=== PATIENT | male | born 1980 | race Caucasian/White ===

== ENCOUNTER 2016-12-03 13:11 | Day surgery (SDC) | payer OTHER ==
[~2016-12-03] VITALS: Ht 182.9 cm; Wt 122.5 kg
[2016-12-03] VITALS (18 sets, daily range): BP systolic 119–156; BP diastolic 60–99; PULSE 80–91; RESP 10–19; O2SAT 95–100
[~2016-12-03 13:11] MED LIST: ALBU18HF INH; CeFAZolin Inj 2 GM in IV Premix 1 EACH IV ONE; DIAZ5TAB PO; DULO60CA61 PO; FLUT16SP NOSTRIL; IBUP800T28 PO; KEN1C; METH10SO PO; METO50TA3 PO; OMEP20TA86 PO; POTA20TA16 PO; TEST200V20 IM; TRAZ-118 PO; ZLP5T PO
[2016-12-03] MEDS ORDERED: MetoCLOpramide 5 mg/mL 2 mL Inj ONE (13:12)
[2016-12-03] MEDS ORDERED: fentaNYL-PF 50 mCg/mL 2 mL Inj ONE (13:12)
[2016-12-03] MEDS ORDERED: Ondansetron 2 mg/mL 2 mL Inj ONE (13:12)
[2016-12-03] MEDS ORDERED: HYDROmorphone 2 mg/mL Inj ONE (13:12)
[2016-12-03] MEDS ORDERED: Dexamethasone 4 mg/mL Inj ONE (13:12)
[2016-12-03] MEDS ORDERED: Rocuronium 10 mg/mL 5 mL Inj ONE (13:12)
[2016-12-03] MEDS: Lactated Ringer's 1,000 ML IV SCH ×2 (14:35→17:41)
[2016-12-03] MEDS ORDERED: CeFAZolin 2 Gm/50 mL D5W Duplex Bag IV ONE (14:45)
[2016-12-03] MEDS ORDERED: Lactated Ringer's 1,000 ML IV SCH (17:29)
[2016-12-03] MEDS ORDERED: Lactated Ringer's 500 ML IV PRN (17:29)
[2016-12-03] MEDS ORDERED: Atropine 0.4 mg/mL Inj IVPUSH PRN (17:30)
[2016-12-03] MEDS ORDERED: Phenylephrine 10,000 mCg/mL Inj IVPUSH PRN (17:30)
[2016-12-03] MEDS ORDERED: Labetalol 5 mg/mL 4 mL Inj IV PRN (17:30)
[2016-12-03] MEDS ORDERED: MetoCLOpramide 5 mg/mL 2 mL Inj IVPUSH PRN (17:30)
[2016-12-03] MEDS ORDERED: EPHEDrine Sulfate 50 mg/mL Inj IVPUSH PRN (17:30)
[2016-12-03] MEDS ORDERED: Ondansetron 2 mg/mL 2 mL Inj IVPUSH PRN (17:30)
[2016-12-03] MEDS ORDERED: hydrALAZINE 20 mg/mL Inj IVPUSH PRN (17:30)
--- NOTE | 2016-12-03 17:41 | PCM.HPANE ---
Patient Data Surgeon Admitting Provider: Attending Provider:Kapil Johnson DPM Primary Care Physician:Cayetano Phillip MD Other Provider:[facility] Reason for Visit Closed Displaced Trimaleolar Fracture Of Lower Rig Ht/WT & BMI Height (Feet): 6 Height (Inches): 0 Weight (Kilograms): 122.5 Body Mass Index 36.00 Allergies Coded Allergies: sulfamethoxazole (Unverified Allergy, Intermediate, Hives, 12/03/16) Pt reports it occured immidiately after dose given by urgent care trimethoprim (Unverified Allergy, Intermediate, Hives, 12/03/16) Pt reports it occured immidiately after dose given by urgent care celecoxib (Verified Adverse Reaction, Intermediate, 12/03/16) DISGESTIVE ISSUES ibuprofen (Verified Adverse Reaction, Intermediate, 12/03/16) GASTRIC ISSUES Past Anesthesia History Anesthesia History: Denies:: Anesthesia Reactions, Fam Anesthesia Reaction Diabetes History Hx Diabetes?: No MRSA MRSA: No Medications Home Meds Incl Beta Lucrecia: Yes Date Beta Lucrecia Taken: Dec 03, 2016 Time Beta Lucrecia Taken: 1200 Active Scripts Ibuprofen 800 Mg [id number] Mg PO TID PRN For Pain #15 TABLET Prov:Virgie Hampton DO 01/08/16 Diazepam (Valium)5 Mg Aqmqti08 Mg PO QID PRN For Anxiety or Agitation #40 TABLET Prov:Virgie Hampton DO 01/08/16 Reported Medications Metoprolol Tartrate 50 Mg Gvxgqg20 Mg PO BID #60 01/05/16 Fluticasone Propionate (Fluticasone Propionate Nasal)16 Gm [place].susp2 [place] NOSTRIL DAILY PRN For Congestion 10/26/15 Potassium Chloride 20 Meq Tab.er.prt20 Meq PO DAILY TAKE WITH FOOD 10/26/15 Albuterol Sulfate (Ventolin HFA Inhaler)200 Puff/18 Gm Inhaler1 Puff INH Q4 PRN For Wheezing #1 INHALER Ref 0 06/19/15 Omeprazole 20 Mg Tablet.dr20 Mg PO DAILY 06/19/15 Duloxetine 60 Mg Capsule.dr60 Mg PO DAILY 03/08/15 Testosterone Cypionate 200 Mg/1 Ml Ajsg138 Mg IM X61gpyg next due 01/08/16 03/08/15 Methadone 10 Mg/5 Ml Zfbrtlas67 Mg PO AM 03/08/15 Trazodone 100 Mg Rpfjum572 Mg PO HS 03/08/15 Zolpidem (Ambien)5 Mg Tab5 Mg PO HS PRN For Insomnia 03/08/15 Discontinued Reported Medications Triamcinolone Acet (Triamcinolone Acetonide Cream)1 Applic/0.25 Gm Cr1 Appful prn #30 01/05/16 History History of ENT Problems?: Yes HEENT History: Positive for:: Sinus Problem (hx of chronic sinusitis) Denies:: Cataracts Dysphagia Hx of Heart Problems?: Yes Cardiovascular History: Positive for:: Edema Hypertension Denies:: Cardiac Surgery Chest Pain Congestive Heart Failure Heart Murmur Irregular Heartbeat Pacemaker Thrombophlebitis Hx of Respiratory Problem?: Yes Respiratory History: Positive for:: Asthma (remote h/o) Pneumonia Denies:: COPD Chest Surgery Dyspnea Emphysema Hemoptysis Oxygen Administration Tuberculosis Use of C-PAP Machine (PORFIRIO+- does not tolerate CPAP) Hx Neurologic Problems?: Yes Neurological History: Positive for:: Seizures (EtOH withdrawal) Denies:: Alzheimer's Disease CVA Dementia Dizziness Headaches Parkinson's Disease Hx of GI Problems?: Yes Gastrointestinal History: Positive for:: Gastroesphageal Reflux (on PPI) Denies:: Diverticulitis Gastrointestinal Bleeding Heartburn Hepatitis Hiatal Hernia Rectal Bleeding Hx of Problems?: No Genitourinary History: Denies:: Kidney Stones Urinary Tract Infection Male Hx: Denies:: Prostate Problems Scrotal Mass Testicular Surgery Skin History: Positive for:: History Skin Disorders? (wound center- right mid thigh wound- treated 02/05/16) Denies:: Pressure Ulcers Hx Musculoskeletal Problems?: Yes Musculoskeletal History: Positive for:: Back Injury Musculoskeletal Trauma (right ankle current admission problem) Denies:: Joint Replacement Hx of Psycho/Social Problems?: Yes Psycho Social History: Positive for:: Hx Depression Denies:: Anxiety Bipolar Disorder Suicide Attempt Hx Surgeries?: Yes (I&D thigh, Rt ankle ex fix, removal hardware right ankle) Hx Any Other Health Problems?: Yes Other History: Positive for:: Hospitalization (lower leg edema this year/ abscess i&d) Denies:: Cancer Endocrine Disease Thyroid Disease History Blood Transfusions: Denies:: Blood Transfuse Reaction Blood Transfusions Hx Diabetes: No Hx Alcohol Use: Yes (currently drinks about 2 weekends a month; denies daily use)Hx Substance Use: Yes (Heroin- currently attending methadone program) Smoking Status: Current Every Day Smoker Have You Smoked inLast 12 mo: Yes Stop/Bang S-Snoring: Do You Snore Loudly: Yes T-Tired: feel tired, fatigued: Yes O-Obsered: Observed not breath: Yes P-Blood Pressure: treated: Yes B- Body Mass Index > 35 kg/m2: Yes A- Age over 50: No N- Neck Large Circumference: No G- Gender Male: Yes PORFIRIO Total Score: 6 Risk Assessment Category Category 1A: Patient has history of documented sleep apnea, and HAS NOT received any narcotic, sedative or anesthesia administration during this stay. Category 1B: Patient has history of documented sleep apnea, and HAS received any narcotic , sedative or anesthesia administration during this stay Category 2: Patient has SUSPECTED Obstructive Sleep Apnea, and HAS received any narcotic , sedative or anesthesia administration during this stay. Category 3: Patient has SUSPECTED Obstructive Sleep Apnea and HAS NOT received narcotic, sedative or anesthesia administration during this stay. Category 4: Outpatient in Procedural Areas with known sleep apnea or who screen positive for High Risk via the STOP/BANG questionnaire. Exam Exam Vital Signs Vital Signs Date Time Temp Pulse Resp B/P Pulse Ox O2 Delivery O2 Flow Rate FiO2 12/03/16 14:15 37.0 84 18 119/60 95 Room Air General Appearance: Alert, Oriented X3, Cooperative, No Acute Distress HEENT/AIRWAY: MP 2, Neck Movement (FROM, large neck circumference), Mouth Opening (3 FBMO) Lungs: Normal Air Movement Heart: Regular Rate/Rhythm Meds/Labs/Diagnostics Admission Meds Current Medications Lactated Ringer's (Lr) 1,000 ml @ 120 mls/hr Q8H20M IV Last administered on t 14:35; Start 12/03/16 at 05:00; Stop 12/03/16 at 13:19; Status DC Labs Test 12/03/16 13:32 Alcohol, Quantitative 42mg/dL (0-10) Plan Impression Patient chart reviewed, patient interviewed and anesthestic plan with risks, benefits, and alternatives discussed, and informed consent obtained. NPO Status: 2100 12/02 ASA Physical Status: ASA3 Severe Disease (Heroin abuse, ETOH abuse, morbidly obese) Anesthetic Support Modalities: [place] Scope Anesthetic Plan: GA, Regional Block (Right popliteal block risks discussed including bleeding, infection, nerve damage, . AQA. Consent signed) Bene/Risks/Altern/Consents: Yes HP Complete Prior to Induction: Yes Valerio Pendleton MD Dec 03, 2016 14:56
[2016-12-03] MEDS ORDERED: Bupivacaine-MPF 0.5% W/EPI 30 mL Inj INFILTRATE ONE (17:42)
[2016-12-03] MEDS ORDERED: oxyCODONE-Acetamin 5-325 mg Tablet PO PRN (20:40)
--- NOTE | 2016-12-03 20:45 | PCM.PODPO ---
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 Grafts, Implants: Implants-See Implant Record Complications There were no periprocedural complications identified. Condition Stable Anesthetic Administered: GA Catheters: None Output, Estimated Blood Loss: 100 Blood Admin during surgery: No Surgical Cast or Splint: Well-padded Short Leg Splint Surgical Specimen Removed: No Specimen sent to Pathology: No Post Operative Plan Nonweightbearing right lower extremity Ice and elevate right lower extremity Pain medication as needed for severe pain only Follow-up in office in 1 week Keep dressing clean dry and intact Discharged to home when stable Contact us with any questions or concerns regarding care Kapil Johnson DPM Dec 03, 2016 20:45
[2016-12-03] MEDS: fentaNYL-PF 50 mCg/mL 2 mL Inj IVPUSH PRN ×2 (21:02→21:20)
[2016-12-03] MEDS: HYDROmorphone 1 mg/mL Inj IVPUSH PRN ×2 (21:30→21:45)
--- NOTE | 2016-12-03 21:55 | NUR ---
Postop Recover and DC Pt comes via [facility] after Rt ankle ORIF. A&Ox4, Denies SOB, CP, Nausea. On 3L NC and will plan to wean off of oxygen. IV Left FA. Rt ankle Dsg Splint and LUIS warp just distal to knee down to toes. Sensation in tact in toes, warm and wiggles toes. Elevated and ICE packs in place. Friend at bedside. VS stable. Pt rates pain at this time in ankle 6-7/10. States that 4-5/10 is tolerable. Plan to recover and discharge once SPO2 is >92% on RA and 90minutes after last oral medications. Pt anxious to discharge.
--- NOTE | 2016-12-03 23:07 | NUR ---
Discharge Pt rates pain in rt ankle 04/30 but requesting to go home so that he can fill his Rxs. Friend at bedside and for transportation. DSG C/D/I. Voiding spontaneously. Able to ambulate well with steady gait Nonweight bearing with scooter. VS STable RA 97% SPO2. Denies CP, SOB, Nausea. IV Lt FA removed and DC'd. All discharge instructions reviewed with pt and friend at bedside. Written Rx for pain medications and DC instructions in hand. Pt states that he understand the instructions, understands to use pain medication as needed when pain is intolerable only. Pt states that he feels safe discharging at this time and is anxious to get home. Pt left hospital via Scooter with steady gait and was transported via friend. Discontinuing care at this time. Addendum: 12/03/16 at 2313 by ROLANDO ZABALA RN Pt also understands t6o elevate and ice ankle. Toes warm and pink. MANHOLE STRIPPER <3sec. Sensation in tact.
--- NOTE | 2016-12-03 23:13 | PCM.ANEP2 ---
Post Anesthesia Evaluation ASA/CMS Post Anesthesia VS in Patient's Normal Range?: Yes Resp Stable; Airway Patent?: Yes CV Function & Hydration Stable: Yes Mental Status Recovered?: Yes Pain control Satisfactory?: Yes N/V Control Satisfactory?: Yes Lloyd Lorenzana MD Dec 03, 2016 23:13
--- NOTE | 2016-12-03 23:13 | PCM.ANEP1 ---
Post Anesthesia Phase 1 PACU Phase 1 Assessment Date of Service: Dec 03, 2016 Vital Signs Vital Signs Date Time Temp Pulse Resp B/P Pulse Ox O2 Delivery O2 Flow Rate FiO2 12/03/16 22:14 36.5 87 16 133/76 96 Nasal Cannula 3.00 12/03/16 22:00 Supplement Oxygen 12/03/16 21:50 88 14 131/82 97 Nasal Cannula 2 12/03/16 21:45 88 14 120/81 97 Nasal Cannula 2 12/03/16 21:40 90 13 120/92 99 Nasal Cannula 2 12/03/16 21:35 36.3 86 14 133/72 97 Nasal Cannula 2 12/03/16 21:30 88 12 136/74 97 Nasal Cannula 2 12/03/16 21:30 84 10 136/84 97 Nasal Cannula 2 12/03/16 21:25 84 19 119/88 97 Nasal Cannula 2 12/03/16 21:20 84 13 119/99 97 Nasal Cannula 2 12/03/16 21:15 83 12 138/81 97 Nasal Cannula 2 12/03/16 21:10 91 14 133/88 95 Room Air 12/03/16 21:05 88 11 140/76 97 Room Air 12/03/16 21:00 88 12 156/84 97 Room Air 12/03/16 20:55 89 12 142/85 100 Simple Mask 8 12/03/16 20:50 90 13 140/89 98 Simple Mask 8 12/03/16 20:45 81 12 135/88 98 Simple Mask 8 12/03/16 20:40 80 13 136/85 98 Simple Mask 8 12/03/16 20:35 36.4 80 13 139/83 98 Simple Mask 8 Anesthetic Administered: GA Level of Alertness: Awake, talking SOTO's with Equal Strength: Yes Pain: Yes Nausea or Vomiting: No Airway Device: Oralpharangeal Airway Lungs: Normal Air Movement Lloyd Lorenzana MD Dec 03, 2016 23:13
== END 2016-12-04 01:29 | disposition home or self-care (01) ==
LOC: SAS 13:11 → OSC 22:04 → SAS 12-04 01:29
PROVIDERS: ATTEND Podiatrist Foot & Ankle Surgery
DX: S82.401K Unspecified fracture of shaft of right fibula, subsequent encounter for closed fracture with nonunion (principal); S93.04XS Dislocation of right ankle joint, sequela; I10 Essential (primary) hypertension; F10.180 Alcohol abuse with alcohol-induced anxiety disorder; E66.01 Morbid (severe) obesity due to excess calories; J45.909 Unspecified asthma, uncomplicated; F32.9 Major depressive disorder, single episode, unspecified; F17.210 Nicotine dependence, cigarettes, uncomplicated; Z79.891 Long term (current) use of opiate analgesic; Z68.39 Body mass index [BMI] 39.0-39.9, adult
CPT/HCPCS: 27726; 36415; 73600; 76001; 76942; C1713; G0480; J0690; J1100; J1170; J2250; J2405; J2765; J7120

== ENCOUNTER 2017-03-13 12:17 | Inpatient (IN) | payer OTHER ==
[2017-03-13] VITALS (8 sets, daily range): BP systolic 141–195; BP diastolic 83–102; PULSE 82–97; RESP 18–20; O2SAT 93–98
[~2017-03-13] VITALS: Ht 180.3 cm; Wt 126.6 kg
[~2017-03-13 12:17] MED LIST changes: -CeFAZolin Inj 2 GM in IV Premix 1 EACH IV ONE; -KEN1C
[2017-03-13] MEDS ORDERED: Thiamine Inj 100 MG, Folic Acid Inj 1 MG, Magnesium Sulfate 50% Inj 2 GM, Multivitamins... IV ONE ×10 (12:40→17:55)
[2017-03-13] MEDS ORDERED: Ondansetron 2 mg/mL 2 mL Inj IVPUSH PRN ×2 (12:40→14:10)
[2017-03-13] MEDS ORDERED: 0.9% Sodium Chloride 1,000 ML IV ONE (12:40)
--- NOTE | 2017-03-13 12:42 | ED.REPORT ---
HPI-Abd Pain M Under 40 Date of Service Mar 13, 2017 ED Provider: Hernando Diaz DO A 36 year old male with a history of hypertension, alcohol seizures, delirium tremens, polysubstance abuse, dyspepsia and GERD presents to the ED with upper abdominal pain that began this morning. Associated symptoms include nausea, vomiting, diaphoresis and tremors. He reports similar symptoms during previous periods of EtOH withdrawal. Patient's abdominal pain radiates to his back. He is currently seeking detox at this time and is requesting resources. Patient's last drank was last night. He had one previous admission in 2014 (5 days) for alcohol withdrawal. Patient currently takes methadone for prior heroin abuse. Nursing Notes Stated Complaint: ABDOMINAL PAIN Chief Complaint: Male Abdominal Pain Nursing Notes Reviewed: Yes Allergies: Coded Allergies: sulfamethoxazole (Unverified Allergy, Intermediate, Hives, 12/03/16) Pt reports it occured immidiately after dose given by urgent care trimethoprim (Unverified Allergy, Intermediate, Hives, 12/03/16) Pt reports it occured immidiately after dose given by urgent care celecoxib (Verified Adverse Reaction, Intermediate, 12/03/16) DISGESTIVE ISSUES ibuprofen (Verified Adverse Reaction, Intermediate, 12/03/16) GASTRIC ISSUES Scheduled Duloxetine (Duloxetine) 60 Mg Capsule.dr 60 MG PO DAILY Methadone (Methadone) 10 Mg/5 Ml Solution 94 MG PO AM Metoprolol Tartrate (Metoprolol Tartrate) 50 Mg Tablet 50 MG PO BID Omeprazole (Omeprazole) 20 Mg Tablet.dr 20 MG PO DAILY Potassium Chloride (Potassium Chloride) 20 Meq Tab.er.prt 20 MEQ PO DAILY TAKE WITH FOOD Testosterone Cypionate (Testosterone Cypionate) 200 Mg/1 Ml Vial 100 MG IM I23ippe next due 01/08/16 Trazodone (Trazodone) 100 Mg Tablet 300 MG PO HS Scheduled PRN Albuterol Sulfate (Ventolin HFA Inhaler) 200 Puff/18 Gm Inhaler 1 PUFF INH Q4 PRN PRN For Wheezing Diazepam (Valium) 5 Mg Tablet 10 MG PO QID PRN PRN For Anxiety or Agitation Fluticasone Propionate (Fluticasone Propionate Nasal) 16 Gm [place].susp 2 [place] NOSTRIL DAILY PRN PRN For Congestion Ibuprofen (Ibuprofen) 800 Mg Tablet 800 MG PO TID PRN PRN For Pain Zolpidem (Ambien) 5 Mg Tab 5 MG PO HS PRN PRN For Insomnia General Time Seen by MD: 12:26 Chief Complaint Abdominal pain Hx Obtained From: Patient Arrived By: Walk-in Sudden in Onset?: No Onset Occurred: 5 - 8 hours ago Symptom Duration: Since onset Progression since Onset: Unchanged Location: : Diffuse Quality: Painful Radiation: : Back Severity: Current: Moderate Severity: Maximum: Moderate Associated with: Reports: Chills, Nausea, Vomiting Pertinent Negative: Pt denies other symptoms Recent Healthcare: No recent doctor visit, No recent hospitalization Past Medical History Past Medical History Notes: Admitted 03/17- for ETOH intox/withdrawal Note medications and often reconciled, but a discharge note from February 2015 indicate patient on maintenance methadone at 140 mg daily Past Medical History Seizures due to alcohol withdrawal Coy moreno H/O polysubstance abuse History of chronic lower extremity edema History dyspepsia Reports: Asthma, GERD, Hypertension Past Surgical History Bladder surgery at age 4 right ankle fracture followed by [facility] Family History AAA Smoking History Current Every Day Smoker Social History Lives with mother and friendShannon. Cares for ill mother. 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 Neurologic: Reports: Shaking, Denies: Seizure Physical Exam Initial Vital Signs Vital Signs (First) Date Time Temp Pulse Resp B/P Pulse Ox O2 Delivery O2 Flow Rate FiO2 03/13/17 12:20 36.2 97 20 151/93 98 Room Air Initial VS: Reviewed Head / Eyes: Atraumatic, Normocephalic, PERRL Extremities: Vascular intact, Neuro intact, No swelling, No tenderness Neurologic: Alert, Oriented, Nonfocal Psychiatric: Mood/affect normal, Behavior normal, Normal thought content General/Constitutional: Awake, Alert, No acute distress Respiratory / Chest: Atraumatic, Breath sounds NL, Breath sounds = bilat, No respiratory distress Cardiovascular: Heart rate NL, Regular rhythm, Heart sounds NL Abdomen: Atraumatic, Soft Tenderness/Guarding/Rebound: Positive: Tender LLQ..., Tender periumbilical Back: Atraumatic, Inspection NL Neurologic: Oriented X3, Speech NL, No sensory deficits, CN II - XII intact Movement Abnormality: Positive: Tremor Skin: Atraumatic, Color NL Color / Condition: Positive: Diaphoresis present Interpretation & Diagnostics Lab Results Interpretation Result Diagram: 03/13/17 1300 03/13/17 1300 Test 03/13/17 13:00 03/13/17 13:53 White Blood Count 14.8th/mm3 (3.8-10.1) Red Blood Count 4.60mil/mm3 (4.40-5.80) Hemoglobin 15.0g/dL (13.8-17.2) Hematocrit 45.9% (41.0-50.0) Mean Corpuscular Volume 99.8fL (81-100) Mean Corpuscular Hemoglobin 32.6pg (27.0-35.0) Mean Corpuscular Hemoglobin Concent 32.7% (32.0-37.0) Red Cell Distribution Width 15.4% (12.3-15.4) Platelet Count 196bil/L (150-400) Neutrophils (%) (Auto) 86.6% (40-74) Lymphocytes (%) (Auto) 5.2% (14-46) Monocytes (%) (Auto) 7.7% (4-12) Eosinophils (%) (Auto) 0.1% (0-5) Basophils (%) (Auto) 0.1% (0-3) Sodium Level 136mEq/L (134-144) Potassium Level 3.4mEq/L (3.5-5.2) Chloride Level 96mEq/L (97-108) Carbon Dioxide Level 27mmol/L (18-29) Blood Urea Nitrogen 2mg/dL (6-20) Creatinine 0.51mg/dL (0.76-1.27) Estimat Glomerular Filtration Rate 194mL/min (>59) Glucose Level 112mg/dL (60-99) Calcium Level 9.0mg/dL (8.5-10.1) Magnesium Level 1.6mg/dL (1.6-2.6) Total Bilirubin 1.1mg/dL (0.0-1.2) Aspartate Amino Transf (AST/SGOT) 60U/L (0-50) Alanine Aminotransferase (ALT/SGPT) 43U/L (0-44) Alkaline Phosphatase 152U/L (25-150) Total Protein 7.0g/dL (6.4-8.4) Albumin 3.5g/dL (3.4-5.0) Lipase 296U/L (13-60) Hold Aguilar Top Tube Received (Received) Alcohols < 10mg/dL (0-10) Lab Results Interpretation: URINE DIP SP [place] 1.000 pH 8 ECG Interpretation ECG Interpretation: Sinus Rhythm QTC 505 Rate 94 Time: 12:58 Interpreted by: ED physician Normal ECG Interpretation: No change from prior ECGs Re-Eval/Medical Decision Med Decision/Clinical Course Concern for impending severe alcohol withdrawal and probable impending delirium tremens as well as pancreatitis. Patient will be admitted. Re-Evaluation/Progress #1: Time of Eval: 13:17 Patient Status: Condition improved Re-Evaluation/Progress Note: Patient agrees to meet with [facility]. He is offered admission but declines because he is concerned about his methadone treatment. All of his questions are addressed. Re-Evaluation/Progress #2: Time of Eval: 13:51 Patient Status: Condition improved Re-Evaluation/Progress Note: Patient is informed of the risks associated with EtOH withdrawal and pancreatitis. He understands and agrees with the intended treament plan to admit. He is provided with resources to help with his substance abuse following discharge. Consultation : Referral / Consult Name: Syed Pedraza Consulted With: Hospitalist Call Returned at: 14:09 Candle Wrapping Machine Operator: Will see patient, Agrees with eval, Agrees with plan, Accepts admit Counseled Regarding: Diagnosis, Lab results, Need for admission Patient Discharge & Departure Primary Impression: Alcohol withdrawal Complication of substance-induced condition: uncomplicated Qualified Code: F10.230 - Alcohol dependence with withdrawal, uncomplicated Additional Impression: Pancreatitis Chronicity: acute Pancreatitis type: alcohol induced Acute pancreatitis complication: no infection or necrosis Qualified Code: K85.20 - Alcohol induced acute pancreatitis without necrosis or infection Disposition: ADMITTED TO HOSPITAL Discharge Condition All VS Reviewed: Yes Condition: Improved Referrals: Cayetano Phillip MD (PCP) Crit Care Except Billable Proc Time Spent: 30-74 minutes Services Performed: Patient management by me, Time spent at bedside, Reviewing test results Critical Care Notes: See MDM, multiple doses of parenteral Valium Scribe Attestation Portions of this note were transcribed by Dr. Primitivo Chapa'Isabel personally performed the history, physical exam and medical decision-making; I reviewed and confirmed the accuracy of the information in the transcribed note. Signed by: Nayla Robles, 03/13/17 1411. copies to: Cayetano Phillip MD, Timothy S DO Mar 13, 2017 12:42 MAYA THCAKER Mar 13, 2017 13:02
[2017-03-13 13:08] LABS: BASOPHILS % (AUTO) 0.1 % (0-3); EOSINOPHILS % (AUTO) 0.1 % (0-5); MONOCYTES % (AUTO) 7.7 % (4-12); Mean Corpuscular Hemoglobin 32.6 pg (27.0-35.0); Mean Corpuscular Volume 99.8 fL (81-100); NEUTROPHILS % (AUTO) 86.6 % (40-74); Platelet Count 196 bil/L (150-400)
[2017-03-13 13:37] LABS: Magnesium 1.6 mg/dL (1.6-2.6)
[2017-03-13] MEDS ORDERED: Alum-Mag Hydrox-Simeth 30 mL Suspension PO PRN ×2 (14:10→17:55)
[2017-03-13] MEDS ORDERED: 0.9% Sodium Chloride 1,000 ML IV SCH (14:10)
--- NOTE | 2017-03-13 17:01 | NUR ---
Admit Patient arrived to room 2001 from ED via gurney. Ambulated form rney to bed independently. A&Ox3. C/o 08/30 abd pain and states" its the same pain from the last time I had pancreatitis". Patient also c/o N/V, hasn't kept anything down for 2 days. Patient abuses ETOH and has hx of ETOH withdrawl seizers. Seizure precautions in place. Most recent CIWA 19, valium given per protocol. Patient hypertensive, all other VSS. MD aware. Patient lying in bed with friends at bedside, call light within reach.
[2017-03-13] MEDS ORDERED: Polyethylene Glycol (PEG) 17 Gm Powder PO PRN (17:55)
[2017-03-13] MEDS ORDERED: Potassium Chloride Inj 20 MEQ in Dextrose 5% 250 ML IV ONE (18:00)
[2017-03-13] MEDS ORDERED: Labetalol 5 mg/mL 4 mL Inj IVPUSH PRN (18:05)
--- NOTE | 2017-03-13 18:11 | PCM.HPMED ---
Subjective Date of Service Mar 13, 2017 Primary Provider: Admitting Physician: Syed Pedraza Primary Care Physician: Cayetano Phillip MD Attending Physician: Syed Pedraza Chief Complaint: abdominal pain, nausea, vomiting History of Present Illness: 35 year old male with a history of hypertension, depression, and polysubstance abuse including active alcohol abuse and report of prior IV heroin (on Methadone for past 2 years) presents today with complaint of ongoing abdominal pain, nausea and vomiting since yesterday morning. He has not been able to keep any alcohol or medications (including Methadone) down since yesterday and thus presented to ED due to concern for withdrawal and further workup and management of his symptoms. He describes the abdominal pain as mid epigastric and radiating all the way across the left side to his back. He has had about 20 episodes of vomiting since yesterday without any noted hematemesis or coffee- ground emesis. He denies any fever, chills, recent travel, exotic food, or sick contacts. He last kept alcohol down 2 nights ago and tried to drink his regular alcohol yesterday but as noted was not able to keep it down. His review of systems is also positive for chronic lower extremity edema ( unchanged in recent days), mild frontal headache (not unusual for him), right ankle pain due to recent injury, and some weight gain in recent years. In the ED he was noted to have evidence of withdrawal and received several doses of Diazepam. Allergies Coded Allergies: sulfamethoxazole (Unverified Allergy, Intermediate, Hives, 12/03/16) Pt reports it occured immidiately after dose given by urgent care trimethoprim (Unverified Allergy, Intermediate, Hives, 12/03/16) Pt reports it occured immidiately after dose given by urgent care celecoxib (Verified Adverse Reaction, Intermediate, 12/03/16) DISGESTIVE ISSUES ibuprofen (Verified Adverse Reaction, Intermediate, 12/03/16) GASTRIC ISSUES Home Medications Albuterol Sulfate 200 Puff/18 Gm Inhaler (Ventolin HFA Inhaler) 1 Puff INH Q4 PRN #1 INHALER Ref 0 PRN For Wheezing Metoprolol Tartrate 50 Mg Tablet 50 Mg PO BID Diazepam 5 Mg Tablet (Valium) 10 Mg PO QID PRN Duloxetine 60 Mg Capsule.Dr 60 Mg PO DAILY Ibuprofen 800 Mg Tablet 800 Mg PO TID PRN Methadone 10 Mg/5 Ml Solution 94 Mg PO AM Trazodone 100 Mg Tablet 300 Mg PO HS Zolpidem 5 Mg Tab (Ambien) 5 Mg PO HS PRN Potassium Chloride 20 Meq Tab.Er.Prt 20 Meq PO DAILY Fluticasone Propionate 16 Gm [place].Susp (Fluticasone Propionate Nasal) 2 [place] NOSTRIL DAILY PRN Omeprazole 20 Mg Tablet.Dr 20 Mg PO DAILY Testosterone Cypionate 200 Mg/1 Ml Vial 100 Mg IM [id number] Exam Vital Signs & I/O Vital Sign- Last 8 Hours Date Time Temp Pulse Resp B/P Pulse Ox O2 Delivery O2 Flow Rate FiO2 03/13/17 16:02 92 03/13/17 15:52 36.7 91 20 195/95 93 Room Air 03/13/17 14:59 85 18 144/83 96 Room Air 03/13/17 14:15 82 18 141/95 95 Room Air 03/13/17 12:20 36.2 97 20 151/93 98 Room Air Lab & Micro Results Laboratory Tests Test 03/13/17 13:00 03/13/17 13:53 White Blood Count 14.8th/mm3 (3.8-10.1) Red Blood Count 4.60mil/mm3 (4.40-5.80) Hemoglobin 15.0g/dL (13.8-17.2) Hematocrit 45.9% (41.0-50.0) Mean Corpuscular Volume 99.8fL (81-100) Mean Corpuscular Hemoglobin 32.6pg (27.0-35.0) Mean Corpuscular Hemoglobin Concent 32.7% (32.0-37.0) Red Cell Distribution Width 15.4% (12.3-15.4) Platelet Count 196bil/L (150-400) Neutrophils (%) (Auto) 86.6% (40-74) Lymphocytes (%) (Auto) 5.2% (14-46) Monocytes (%) (Auto) 7.7% (4-12) Eosinophils (%) (Auto) 0.1% (0-5) Basophils (%) (Auto) 0.1% (0-3) Sodium Level 136mEq/L (134-144) Potassium Level 3.4mEq/L (3.5-5.2) Chloride Level 96mEq/L (97-108) Carbon Dioxide Level 27mmol/L (18-29) Blood Urea Nitrogen 2mg/dL (6-20) Creatinine 0.51mg/dL (0.76-1.27) Estimat Glomerular Filtration Rate 194mL/min (>59) Glucose Level 112mg/dL (60-99) Calcium Level 9.0mg/dL (8.5-10.1) Magnesium Level 1.6mg/dL (1.6-2.6) Total Bilirubin 1.1mg/dL (0.0-1.2) Aspartate Amino Transf (AST/SGOT) 60U/L (0-50) Alanine Aminotransferase (ALT/SGPT) 43U/L (0-44) Alkaline Phosphatase 152U/L (25-150) Total Protein 7.0g/dL (6.4-8.4) Albumin 3.5g/dL (3.4-5.0) Lipase 296U/L (13-60) Hold [place] Top Tube Received (Received) Alcohols < 10mg/dL (0-10) Hold Urine Received (Received) Result Diagram: 03/13/17 1300 03/13/17 1300 Review of Systems: Constitutional: Negative, except as otherwise mentioned in the history above. Ophthalmologic: Negative, except as otherwise mentioned in the history above. Cardiovascular: Negative, except as otherwise mentioned in the history above. Respiratory: Negative, except as otherwise mentioned in the history above. Gastrointestinal: Negative, except as otherwise mentioned in the history above. Genitourinary: Negative, except as otherwise mentioned in the history above. Musculoskeletal: Negative, except as otherwise mentioned in the history above. Neurological: Negative, except as otherwise mentioned in the history above. Psychiatric: Negative, except as otherwise mentioned in the history above. Hematologic/Lymphatic: Negative, except as otherwise mentioned in the history above. Allergic/Immunologic: Negative, except as otherwise mentioned in the history above. PMH Hypertension GERD Depression Polysubstance abuse including alcohol, heroin Obesity Surgical History Debridement of a wound on his right leg (October 2015) Family History Denies any family history of NV/CVA/Cancers Social History Hx Alcohol Use: Yes (1 pint liqour, 6 pack beer daily) Hx Substance Use: Yes (former heroin, in methadone clinic) Hx Tobacco Use: Yes Smoking Status: Current Every Day Smoker (1ppd) Exam Vital Signs Vital Sign - Last Date Time Temp Pulse Resp B/P Pulse Ox O2 Delivery O2 Flow Rate FiO2 03/13/17 16:02 92 03/13/17 15:52 36.7 20 195/95 93 Room Air Exam General: Alert, Oriented X3, Cooperative, No Acute Distress Head: Normal Eyes: PERRLA, EOMI, Scleral Anicteric Mouth: Mucous Membr Moist/[place] Chest & Lungs: Clear to auscultation bilaterally Cardiovascular: Regular Rate/Rhythm Abdomen: Tender mostly in mid-epigastric without rebound, Non-distended, Normoactive bowel tones, Soft Genitourinary: Lopez Absent Musculoskeletal: Ankle (right ankle somewhat tender) Extremities: 1+ Edema in LE bilaterally below the knees, Tenderness/Swelling Noted (right ankle) Skin: No wounds/Lacerations Neurological: Grossly Neurologically Intact, Cranial Nerves 2-12 Intact, Normal Speech Lab and Diagnostics Result Diagram: 03/13/17 1300 03/13/17 1300 X-Rays, CTs and MRIs No imaging at this time 12-lead ECG Not done Assessment & Plan 35 year old male with a history of hypertension, depression, and polysubstance abuse including active alcohol abuse and report of prior IV heroin (on Methadone for past 2 years) presents with complaint of ongoing abdominal pain, nausea and vomiting since one day priro to presentation. # Acute abdominal pain, nausea and vomiting likely due to acute pancreatitis. present on admission. - Acute pancreatitis likely due alcohol abuse - Keep NPO for now - Supportive care including IV fluid, antiemetics and IV morphine as needed for pain - Check CT abdomen/pelvis to rule out other etiology for his presenting symptoms - Lipase elevated on admission. Will repeat level in am - Check fasting lipid profile including triglyceride. # History of alcohol abuse with report of active withdrawal present on admission. - Start [facility] protocol - Social work consult # History of hypertension, poorly controlled on admission - Followup. If still elevated after adequate pain control and Diazepam for withdrawal will consider either resuming home meds (if able to tolerate oral meds) or IV medication prn # History of opioid (heroin) abuse, currently reportedly on Methadone - Verify home dose Methadone in the morning and resume if able to tolerate oral meds - In the meantime will continue with IV Morphine as needed for pain control # History of depression, presumed stable. - Verify home meds in the morning and resume as tolerated # History of GERD. - IV Protonix while NPO and then change to PO when able to tolerate # Acute hypokalemia, present on admission - Replete and followup repeat labs in am # Transaminitis, unclear chronicity but likely chronic and due to history of alcohol abuse. - Followup Expected length of hospital stay is greater than 2 midnights and likely 3-4 days. GI Prophylaxis: Proton Pump Inhibitor VTE Prophylaxis: Sub-Q Heparin (Unfractionated) Resuscitation Status: CPR: Attempt Resuscitation (discussed and verified with patient) Time spent 60 min Syed Pedraza Mar 13, 2017 18:11
[2017-03-13] MEDS: Ondansetron 2 mg/mL 2 mL Inj IVPUSH PRN ×2 (18:26→22:10)
[2017-03-13] MEDS: Pantoprazole 4 mg/mL 10 mL Inj IVPUSH SCH (19:08)
--- NOTE | 2017-03-13 19:43 | NUR ---
off floor off floor to ct scan via wheelchair.
--- NOTE | 2017-03-13 19:59 | DRSVH ---
PROCEDURE: CT ABDOMEN AND PELVIS WITH CONTRAST ([id number]) INDICATIONS: abd pain TECHNIQUE: After the administration of oral and intravenous contrast, 5 mm thick sections acquired from the diap hragms to the symphysis. 5 mm thick coronal and sagittal reformats were performed. For radiation do se reduction, the following was used: automated exposure control, adjustment of mA and/or kV accordi ng to patient size. COMPARISON: None. FINDINGS: Image quality: Excellent. ABDOMEN: Lung bases: Lung bases are clear. Heart size is normal. Solid organs: Liver and spleen are normal in size and enhancement. Diffuse fatty infiltration of the liver is noted. Gallbladder is within normal limits. Biliary system is non-dilated. Pancreas enha nces normally. Mild inflammatory changes and trace free fluid noted adjacent to the pancreas suspicio us for pancreatitis. No adrenal nodules. Kidneys are normal in size and enhancement, without hydrone phrosis. Peritoneum and bowel: Stomach, small bowel, and colon loops are normal in caliber and wall thickness . No free fluid or air. The appendix is normal. Nodes and vessels: No retroperitoneal or mesenteric adenopathy. Aorta and inferior vena cava are no rmal in caliber. Miscellaneous: No ventral hernias. PELVIS: Genitourinary: Bladder wall thickness is normal. Miscellaneous: No adenopathy. Small, bilateral, fat containing inguinal hernias are noted. Injectio n granuloma noted in the left buttock. Bones: No suspicious bony lesions. No vertebral body compression fractures. IMPRESSION: 1. Mild inflammatory changes and trace free fluid noted adjacent to the pancreas suspicious for panc reatitis. Please correlate with clinical and laboratory data. 2. Hepatic steatosis. Dictated by: Jennifer William MD, PhD on 03/13/2017 at 19:53 Approved by: Jennifer William MD, PhD on 03/13/2017 at 19:58
[2017-03-13] MEDS ORDERED: MAGN400T39 PO (21:11)
--- NOTE | 2017-03-13 22:39 | NUR ---
transferr - increased ciwa score patient's ciwa score increased from 13 to 27. patient stated "i see precedex in my near future." communicated with charge master analyst melissa. patient transferred to room 2019. verbal report to naomi brown rn. all belongings transferred to room. discussed transfer with patient. verbalized understanding.
[2017-03-14] VITALS (7 sets, daily range): BP systolic 139–158; BP diastolic 92–109; PULSE 52–87; RESP 11–20; O2SAT 97
[2017-03-14] MEDS: Dexmedetomidine 400 mCg/100 mL NS Premix IV SCH ×2 (02:02→05:20)
[2017-03-14] MEDS: HYDROmorphone 1 mg/mL Inj IVPUSH PRN ×8 (02:08→21:15)
[2017-03-14] MEDS: 0.9% Sodium Chloride 1,000 ML IV SCH ×2 (03:33→12:59)
[2017-03-14 03:46] LABS: BASOPHILS % (AUTO) 0.1 % (0-3); EOSINOPHILS % (AUTO) 1.4 % (0-5); MONOCYTES % (AUTO) 10.4 % (4-12); Mean Corpuscular Hemoglobin 32.9 pg (27.0-35.0); Mean Corpuscular Volume 99.8 fL (81-100); NEUTROPHILS % (AUTO) 79.3 % (40-74); Platelet Count 158 bil/L (150-400)
--- NOTE | 2017-03-14 04:26 | NUR ---
precedex gtt started report received from pcc rn at 0140 for precedex gtt, pt a/o times three, coop, no seizure activity noted, seizure pads in place, ciwa score=36, precedex gtt started at 0.7mcg/kg/hr, pt diaphoretic, anxious, restless, c/o [place], nausea without emesis, tactile and auditory disturbances, dilaudid given for c/o abd pain, ciwa currently down to 24, pt now able to lay back in bed instead of bent over dangling at bedside, aware of pt's precedex dose and assessment, no new orders, md aware pt still complaining of abd pain after dilaudid dose but appears more comfortable, aware of pt has had ativan ivp in the past and effective for withdrawals, no new orders, banana bag stopped per orders and ns at 100ml/hr started due to banana bag and precedex being incompatable, pt had total of approx 600mls of banana bag, pt difficult iv start per ivt, one piv in left upper arm, am labs drawn, ice chips at bedside per orders, nausea present but no emesis, abd round/tender, bt's present, no bm, voiding well per urinal, edema to le's, r>l, right ankle dressing applied to healing old right ankle surgery, telfa applied and wrapped with kerlex, ls- clear/decreased, ra sats =88-low 90's, pt placed on two liters o2 per nc, sats upper 90;s, resp rate down from 28 to teens, denies sob, tele- sr, hr down from 90's to 70's, see ccu flow sheet for vital signs, afebrile, denies cp, see assessment charting, plan: monitor for etoh withdrawals/seizures,
[2017-03-14] MEDS: Ondansetron 2 mg/mL 2 mL Inj IVPUSH PRN (05:10)
[2017-03-14] MEDS ORDERED: KCl 40 mEq/500 mL D5W(K 3 - 3.7 & Creat < 2) IV ONE (06:00)
--- NOTE | 2017-03-14 06:28 | NUR ---
comfortable, pt able to sleep for 1-2 hrs this am, pt reports abd pain much better, precedex gtt at 0.6mcg/kg/hr with hr in high 50's, ciwa improved, pt calmer and relaxed --looking more comfortable, still intermittently diaphoretic, md aware of am k + level, mg/k protocol ordered, kcl rider started, md aware pt was very difficult iv start yesterday with ivt, md requesting ivt try to start a second line, message left for ivt,
[2017-03-14] MEDS: Multivit-Miner-Folic Acid-Iron Tablet PO SCH (08:18)
[2017-03-14] MEDS: Pantoprazole 4 mg/mL 10 mL Inj IVPUSH SCH (08:23)
[2017-03-14] MEDS: Heparin 5,000 Unit/mL Inj SUBQ SCH ×2 (08:23→16:33)
--- NOTE | 2017-03-14 10:34 | NUR ---
NUTRITION ASSESSMENT Assess: 36 YO M admitted to CCU for ETOH withdrawal, pancreatitis. Pt has been NPO X 1 day. Pt on CIWA protocol. PMHX: HTN, depression, polysubstance abuse, ETOH, GERD. DIET: NPO. LABS: K+ 3.3, BUN 2, Cr 0.47, Ca 8.3, Alb 3.3, Lipase 228 MEDICATIONS: Reviewed. Precedex. GI: No BM noted. SKIN: No issues noted. ANTHROPOMETRICS: Wt: 127.2 kg, BMI 39.1 kg/m2, Admit wt: 127.4 kg, IBW: 78.2 kg. ESTIMATED NEEDS: Pancreatitis/BMI Calories: 9757-2925 kcal/day (20-25 kcal/kg BW) Protein: 94-141 g/day (1.2-1.8 g/kg IBW) NUTRITION DIAGNOSIS: 1) Inadequate oral intake related to decreased ability to consume sufficient energy as evidenced by NPO status. INTERVENTION: 1) Will await timely advancement of diet. MONITOR/EVALUATE: NPO status, diet advance, labs, GI/nutrition status. Follow per moderate nutrition risk guidelines.
--- NOTE | 2017-03-14 11:45 | PCM.PNMED ---
Subjective Date of Service Mar 14, 2017 Subjective Overnight: Patient see score jeison to high 20s, he was transferred to CCU was called overnight saying "I see Precedex in my near future", patient was indeed started on Precedex GTT at 0.6 with some improvement in hemodynamic state as well as agitation. Today: Patient awake and alert lying in hospital bed with seizure precautions in place. In no acute distress awake and alert and mentating appropriately. Denies chest pain, headache, visual changes, shortness of breath GI or symptoms. States she does have epigastric pain still though this is improving with nausea though no vomiting. Exam Vital Signs Vital Sign - Last Date Time Temp Pulse Resp B/P Pulse Ox O2 Delivery O2 Flow Rate FiO2 03/14/17 08:00 Supplement Oxygen 03/14/17 08:00 37.1 60 14 154/109 97 2.00 Intake and Output 03/13/17 03/13/17 03/14/17 Cumulative From/Thru 14:59 22:59 06:59 03/13/17 12:20 - 03/14/17 05:42 Intake Total 2000 ml 350 ml 834 ml 3184 ml Output Total 825 ml 825 ml Balance 2000 ml 350 ml 9 ml 2359 ml Intake Oral 100 ml 100 ml IV Total 2000 ml 350 ml 734 ml 3084 ml Output Urine Total 825 ml 825 ml # Bowel Movements 0 0 Exam General: No acute distress, well-developed, well-nourished, appropriately interactive laying in hospital bed with seizure precautions in place HEENT: Normocephalic, atraumatic. External ears without defect. Pupils equal, round, and reactive to light and accommodation. Anicteric sclerae, moist conjunctivae, and no lid lag. Oropharynx free of erythema and cobble stoning with moist mucosa. Neck: Supple with full range of motion. No jugular venous distension. No bruits. Cardiovascular: Regular rate and rhythm with no murmurs appreciated Pulmonary: Clear to auscultation bilaterally with no crackles, wheezes. Normal respiratory effort with no use of accessory muscles. Abdomen: Bowel tones present. To palpation. Tender in the epigastric area with radiation to left upper quadrant. Extremities: No clubbing, cyanosis, or edema appreciated. Skin: Normal temperature, turgor, and texture Neurological: Cranial nerves grossly intact. Psychiatric: Normal mood and affect. Alert and oriented to person, place, and time. IVs and Medications Medications Reviewed: Medications were reviewed in detail Lab and Diagnostics Result Diagram: 03/14/1731603/14/17316 X-Rays, CTs and MRIs . CT ABDOMEN AND PELVIS WITH CONTRAST 1. Mild inflammatory changes and trace free fluid noted adjacent to the pancreas suspicious for pancreatitis. Please correlate with clinical and laboratory data. 2. Hepatic steatosis. Dictated by: Jennifer William MD, PhD on 03/13/2017 at 19:53 12-lead ECG Not done Assessment & Plan 36 year old male with a history of hypertension, depression, and polysubstance abuse including active alcohol abuse and report of prior IV heroin (on Methadone for past 2 years) presents with complaint of ongoing abdominal pain, nausea and vomiting since one day prior to presentation. 1. Pancreatitis. Acute area present on admission. Ongoing - Secondary to chronic EtOH abuse - (recent use of 1 pint of hard liquor and sixpack of beer nightly) - CT showed fluid adjacent to the pancreas - Elevated lipase, trending down - Elevated LDL - Nothing by mouth, unable to swallow oral meds and ice chips - Dilaudid 1-2 mg IV every 3 when necessary - Continue fluids - Advance diet as tolerated 2. EtOH abuse. Acute on chronic. Present on admission. Ongoing. - History of EtOH withdrawal with reported seizures - [facility] protocol - Ativan instead of Valium secondary to patient preference - Precedex, attempting to wean down - Social work consult 3. History of hypertension, poorly controlled on admission. Chronic. Ongoing - Restart home metoprolol - Hold if heart rate below 60 4. History of opioid (heroin) abuse, currently reportedly on Methadone. Present admission. Chronic. Ongoing - Verify home dose Methadone in the morning and resume if able to tolerate oral meds - Continue IV Dilaudid when necessary 5. History of depression, presumed stable. - Restart home duloxetine 6. History of GERD. Present admission. Chronic. Ongoing - IV Protonix while NPO and then change to PO when able to tolerate 7 Acute hypokalemia, present on admission. Chronic. Ongoing - Potassium magnesium replacement protocol 8. Elevated liver function tests, unclear chronicity but likely chronic and due to history of alcohol abuse. Present on admission. Soft -Repeat labs showed normalization of AST ALT Disposition: Expected length of hospital stay is greater than 2 midnights and likely 3-4 days, currently CCU status secondary to Precedex use. GI Prophylaxis: Proton Pump Inhibitor VTE Prophylaxis: Sub-Q Heparin (Unfractionated) Resuscitation Status: CPR: Attempt Resuscitation (discussed and verified with patient) Attending Statement The patient was seen and examined together with Dr. Beauchamp on 03/14/17 and I agree with the history, exam and plan as outlined in the note above. IMELDA BEAUCHAMP DO Mar 14, 2017 11:45 Shavon Sanchez DO Mar 15, 2017 19:11
--- NOTE | 2017-03-14 15:49 | NUR ---
Social Work Note - Screening: D/A: The Pt is a 36 y/o male that was admitted for etoh w/d, pancreatitis. Readmission Risk Score is 4. The Pt's PCP is MD Cayetano Phillip and his insurance is [facility]. EMR reviewed. The Pt lives independently in [place]. He has a history of etoh use and is open with an unknown methadone clinic. Pt's current CIWA is 29. The Pt is not appropriate for an assessment at this time. SW to follow for treatment support and resources. P: The Pt is not medically stable for discharge, likely to discharge in 3-4 dates as per progress notes. CIWA at 29, SW to follow up with Pt once he more appropriate for an assessment. SW to follow for treatment support and resources. Britney Gillis MSW [place]
[2017-03-14] MEDS ORDERED: Albuterol 2.5 mg/3 mL Inhalation Solution NEB PRN (16:00)
[2017-03-14] MEDS: Dextrose 5% 0.9% NaCl 1,000 ML IV SCH (18:18)
--- NOTE | 2017-03-14 18:28 | NUR ---
CIWA/respiratory/abd pain Pt CIWA scores ranged from 8-15 during shift (see CCU flow sheet). Titrated off precedex and using 1mg IV push lorazepam q2h and IV push dilaudid for abd pain PRN. Pt resting comfortably throughout most shift. Titrated down O2 to RA but during sleep he would have periods of desat/apnea, so 2-3L NC during sleep. BG 85 this afternoon, notified MD who switched fluids from NS to D5NS at 100. Frequent rounding continues. Pt able to use urinal and move independently in bed.
[2017-03-15] VITALS (12 sets, daily range): BP systolic 138–171; BP diastolic 79–111; PULSE 58–89; RESP 12–16; O2SAT 93–98
[2017-03-15] MEDS: HYDROmorphone 1 mg/mL Inj IVPUSH PRN ×6 (00:11→22:27)
[2017-03-15] MEDS: Heparin 5,000 Unit/mL Inj SUBQ SCH ×3 (00:11→16:44)
--- NOTE | 2017-03-15 01:07 | NUR ---
P) ETOH withdrawal Pt. alert and oriented, very noticable tremor at rest, c/o headache 5-7/10, and abdominal pain 5-7/10, but appears comfortable with current doses of ativan q2h and dilaudid q3h. I) Meds per 's orders and cont. close monitoring. E) Currently alternating sitting at side of bed and being in bed.
[2017-03-15 03:35] LABS: BASOPHILS % (AUTO) 0.2 % (0-3); EOSINOPHILS % (AUTO) 2.7 % (0-5); MONOCYTES % (AUTO) 9.5 % (4-12); Mean Corpuscular Hemoglobin 32.5 pg (27.0-35.0); Mean Corpuscular Volume 98.2 fL (81-100); NEUTROPHILS % (AUTO) 71.1 % (40-74); Platelet Count 186 bil/L (150-400)
[2017-03-15] MEDS: Dextrose 5% 0.9% NaCl 1,000 ML IV SCH ×3 (04:11→23:55)
--- NOTE | 2017-03-15 07:34 | NUR ---
quitting ETOH pt appears motivated to quit drinking. This is his first hospitalization for pancreatitis. He states he wants to quit to set a better example for his son. He states he quit IV heroin and never looked back. Pt is kind and cooperative with counseling. Encouraged pt to find a good sponsor and attend meetings. He states he has a friend who goes to gambling anonymous meetings and he is going to go to her meetings and she is going to go to his AA meetings until he finds a good sponsor.
[2017-03-15] MEDS ORDERED: SODIUM CHLORIDE 0.9% IV ONE (07:35)
[2017-03-15] MEDS ORDERED: POTASSIUM PHOS IV ONE (07:35)
[2017-03-15] MEDS: Pantoprazole 4 mg/mL 10 mL Inj IVPUSH SCH (08:24)
[2017-03-15] MEDS: Multivit-Miner-Folic Acid-Iron Tablet PO SCH (08:24)
[2017-03-15] MEDS: DULoxetine 30 mg DR Capsule PO SCH (08:24)
[2017-03-15] MEDS ORDERED: Multivit-Miner-Folic Acid-Iron Tablet PO SCH (08:30)
--- NOTE | 2017-03-15 11:00 | PCM.PNMED ---
Subjective Date of Service Mar 15, 2017 Subjective Overnight: Patient's CIWA scores escalated, night doctor increased her Ativan dose to 1-2 mg every 2. Tremulous throughout the night, with headaches and abdominal pain. Today: Patient awake and alert sitting up in bed states he still has epigastric pain and is still tremulous though does not state current headaches. States the medications he is being given our managing his draw symptoms well. Exam Vital Signs Vital Sign - Last Date Time Temp Pulse Resp B/P Pulse Ox O2 Delivery O2 Flow Rate FiO2 03/15/17 08:33 93 Room Air 03/15/17 07:31 37.0 86 12 148/103 2.00 Intake and Output 03/14/17 03/14/17 03/15/17 Cumulative From/Thru 15:00 23:00 07:00 03/13/17 12:20 - 03/15/17 06:21 Intake Total 1961 ml 1213 ml 6358 ml Output Total 1950 ml 3550 ml 6325 ml Balance 11 ml -2337 ml 33 ml Intake Oral 300 ml 400 ml IV Total 1661 ml 1213 ml 5958 ml Output Urine Total 1950 ml 3550 ml 6325 ml # Bowel Movements 0 Exam General: No acute distress, well-developed, well-nourished, appropriately interactive sitting up in hospital bed HEENT: Normocephalic, atraumatic. External ears without defect. Pupils equal, round, and reactive to light and accommodation. Neck: Supple with full range of motion. No jugular venous distension. Cardiovascular: Regular rate and rhythm with no murmurs appreciated Pulmonary: Clear to auscultation bilaterally with no crackles, wheezes. Normal respiratory effort with no use of accessory muscles. Abdomen: Bowel tones present. To palpation. Tender in the epigastric area with radiation to left upper quadrant. Extremities: No clubbing, cyanosis, or edema appreciated. Tremulous Skin: Normal temperature, turgor, and texture Neurological: Cranial nerves grossly intact. Psychiatric: Normal mood and affect. Alert and oriented to person, place, and time. IVs and Medications Medications Reviewed: Medications were reviewed in detail Lab and Diagnostics Result Diagram: 03/15/17 0320 03/15/17 0320 X-Rays, CTs and MRIs . CT ABDOMEN AND PELVIS WITH CONTRAST 1. Mild inflammatory changes and trace free fluid noted adjacent to the pancreas suspicious for pancreatitis. Please correlate with clinical and laboratory data. 2. Hepatic steatosis. Dictated by: Jennifer William MD, PhD on 03/13/2017 at 19:53 Assessment & Plan 36 year old male with a history of hypertension, depression, and polysubstance abuse including active alcohol abuse and report of prior IV heroin (on Methadone for past 2 years) presents with complaint of ongoing abdominal pain, nausea and vomiting since one day prior to presentation. Hospital day 3 Pancreatitis. Acute area present on admission. Ongoing - Secondary to chronic EtOH abuse - (long-standing use of 1 pint of hard liquor and sixpack of beer nightly) - CT showed fluid adjacent to the pancreas - Elevated lipase, trending down - Elevated LDL - Dilaudid 1-2 mg IV every 4 when necessary - Continue fluids - Advance diet to clear liquids - Advanced to oral medications EtOH abuse. Acute on chronic. Present on admission. Ongoing. - History of EtOH withdrawal with reported seizures - CIWA protocol - Ativan instead of Valium secondary to patient preference - Restart Precedex today secondary to high CIWA - Social work consult History of hypertension, poorly controlled on admission. Chronic. Ongoing - Restart home metoprolol - Hold if heart rate below 60 History of opioid (heroin) abuse, currently reportedly on Methadone. Present admission. Chronic. Ongoing - Methadone home dose verified with his methadone clinic 100mg daily - Continue IV Dilaudid 2 mg every 4 History of depression, presumed stable. - Restart home duloxetine History of GERD. Present admission. Chronic. Ongoing - IV Protonix while NPO and then change to PO when able to tolerate Acute hypokalemia, present on admission. Chronic. Resolved - Calcium levels normalized - Potassium magnesium replacement protocol Elevated liver function tests, unclear chronicity but likely chronic and due to history of alcohol abuse. Present on admission. Soft -Repeat labs showed normalization of AST ALT -Continue to monitor Insomnia. Present on admission. Ongoing. Chronic - Restart home Ambien Disposition: Currently CCU status secondary to Precedex use and elevated CIWA scores with a history of ETOH seizures. GI Prophylaxis: Proton Pump Inhibitor VTE Prophylaxis: Sub-Q Heparin (Unfractionated) Resuscitation Status: CPR: Attempt Resuscitation (discussed and verified with patient) Attending Statement The patient was seen and examined together with Dr. Beauchamp on 03/15/17 and I have added additional information to the note above. IMELDA BEAUCHAMP DO Mar 15, 2017 10:48 Shavon Sanchez DO Mar 15, 2017 19:15
--- NOTE | 2017-03-15 14:23 | NUR ---
worsening CIWA/IV access 1300 pt has worsening tremor and is drenched in sweat, CIWA 23, ativan given and precedex increased. Discussed with Dr Green. 1330 IV therapy tries to get another PIV and are unable after looking with ultrasound in both arms they tried a foot and were still unable. Pt has one PIV at this time. HR has decreased from 80-90's to high 50 low 60's while on precedex. Plan not to increase precedex from current dose of 0.4 mcg/kg/hr. Discussed worsening CIWA, HR, and line access with Dr Green.
[2017-03-15] MEDS ORDERED: Sodium Chloride LOK Flush 10 mL Syringe IVFLUSH PRN ×2 (14:35)
[2017-03-15] MEDS: Dexmedetomidine 400 mCg/100 mL NS Premix IV SCH (15:34)
--- NOTE | 2017-03-15 16:59 | DRSVH ---
PROCEDURE: X-RAY PICC LINE PLACEMENT BY NURSE ([id number]) INDICATIONS: additional access COMPARISON: [facility], CR, XR PICC LINE PLACE BY NURSE, 10/27/2015, 11:15. [facility], CR, PICC LINE PLACE BY NURSE (PNL), 03/07/2015, 16:15. FINDINGS: PICC was placed by the intravenous therapy team from the right side. Fluoroscopic spot fi lm demonstrates tip of PICC in the lower SVC. IMPRESSION: Tip of PICC lies within the lower SVC. Dictated by: Gregg Cerna M.D. on 03/15/2017 at 16:57 Approved by: Gregg Cerna M.D. on 03/15/2017 at 16:58
--- NOTE | 2017-03-15 21:30 | NUR ---
[facility] transfer Pt received from CCU Rn. Pt alert and oriented x3.
[2017-03-16] VITALS (7 sets, daily range): BP systolic 140–172; BP diastolic 101–122; PULSE 63–81; RESP 9–18; O2SAT 94–98
[2017-03-16] MEDS: Heparin 5,000 Unit/mL Inj SUBQ SCH ×3 (01:08→17:20)
[2017-03-16] MEDS: HYDROmorphone 1 mg/mL Inj IVPUSH PRN ×3 (02:48→13:30)
[2017-03-16] MEDS: Dextrose 5% 0.9% NaCl 1,000 ML IV SCH ×2 (05:02→15:08)
[2017-03-16] MEDS ORDERED: ZYL100 PO (05:04)
[2017-03-16 05:18] LABS: BASOPHILS % (AUTO) 0.1 % (0-3); EOSINOPHILS % (AUTO) 2.4 % (0-5); MONOCYTES % (AUTO) 10.3 % (4-12); Mean Corpuscular Hemoglobin 33.3 pg (27.0-35.0); Platelet Count 219 bil/L (150-400)
[2017-03-16 05:38] LABS: Magnesium 1.9 mg/dL (1.6-2.6); Phosphorus 3.2 mg/dL (2.5-4.9)
--- NOTE | 2017-03-16 05:40 | NUR ---
CIWA/Pain Pt oriented x3. Forgetful but answers appropriately. Anxious most of the times. CIWA 9-11. Ativan given q2h prn. Ativan given with some effectiveness. Rates pain abd pain most of the time 7/10. Patient mentioned pain would go down to only 5/10 with Dilaudid as often as q4h prn. Tolerating po without any vomiting noted/reported. Voiding often per urinal.
[2017-03-16] MEDS: Pantoprazole 4 mg/mL 10 mL Inj IVPUSH SCH (08:21)
[2017-03-16] MEDS: Multivit-Miner-Folic Acid-Iron Tablet PO SCH (08:22)
[2017-03-16] MEDS: DULoxetine 30 mg DR Capsule PO SCH (08:23)
--- NOTE | 2017-03-16 14:25 | NUR ---
NUTRITION FOLLOW-UP: Assess: 36 YO M admitted to CCU for ETOH withdrawal, pancreatitis. Pt is on CIWA protocol. Current CIWA ~8. He is currently on CL diet and has tolerated that well. No PO recorded but no reported n/v. PMHX: HTN, depression, polysubstance abuse, ETOH, GERD. DIET: CL LABS: Bun 3, [employer] .50, AST 59, alb 3.5, lipase 131 MEDICATIONS: Reviewed. Thiamine, MVI. GI: No BM noted. SKIN: No issues noted. ANTHROPOMETRICS: Wt: 126.6 kg, BMI 38.9 kg/m2, Admit wt: 127.4 kg, IBW: 78.2 kg. ESTIMATED NEEDS: Pancreatitis/BMI Calories: 3753-2209 kcal/day (20-25 kcal/kg BW) Protein: 95-120 g/day (1.2-1.5 g/kg IBW) NUTRITION DIAGNOSIS: 1) Inadequate oral intake related to decreased ability to consume sufficient energy as evidenced by NPO status. --IMPROVING INTERVENTION: 1) Recommend continue to advance diet as tolerated MONITOR/EVALUATE: diet advance, wt, PO, labs, GI/nutrition status. Follow per high nutrition risk guidelines.
--- NOTE | 2017-03-16 16:46 | NUR ---
P: Hemodynamics, Neuro, Pain, Nutrition I,E: Pt remains hypertensive, MD is aware. He is in SR in the 70's. IVF's were at 100cc/hr, now hep locked at pt is taking diet and fluids. Pt is alert and oriented, last CIWA was 1. Pt has been requesting ativan today but this has now been discontinued. Pt is A & O X 3, no obvious tremors, no obvious hallucinations auditory or visual. Pt has complained of pain today intermittently, and Dilaudid has been given per orders. This has also been discontinued. Pt has been tolerating clear liquids and will advance at dinner time to heart healthy diet. Pt was encouraged to eat small amounts and avoid overeating to prevent possible nausea and vomiting.
--- NOTE | 2017-03-16 16:46 | NUR ---
Pt to transfer [place] [facility] [place] stable, order received to transfer to [facility]
--- NOTE | 2017-03-16 17:24 | PCM.PNMED ---
Subjective Date of Service Mar 16, 2017 Subjective Overnight: CIWA scores maintained between 9 and 11. No reported episodes of emesis. Today: Patient awake and alert sitting up in bed in no apparent distress. States his pain is well managed, very concerned about continuation of methadone upon discharge. Still states some epigastric pain. Exam Vital Signs Vital Sign - Last Date Time Temp Pulse Resp B/P Pulse Ox O2 Delivery O2 Flow Rate FiO2 03/16/17 16:00 78 03/16/17 16:00 36.4 14 165/109 98 Room Air 03/15/17 16:52 2.00 Intake and Output 03/15/17 03/15/17 03/16/17 Cumulative From/Thru 15:00 23:00 07:00 03/13/17 12:20 - 03/16/17 05:25 Intake Total 4474 ml 1434 ml 41423 ml Output Total 2450 ml 1280 ml 57703 ml Balance 2024 ml 154 ml 2211 ml Intake Oral 2805 ml 400 ml 3605 ml IV Total 1669 ml 1034 ml 8661 ml Output Urine Total 2450 ml 1280 ml 56153 ml # Bowel Movements 0 0 Exam General: No acute distress, well-developed, well-nourished, appropriately interactive sitting up in hospital bed HEENT: Normocephalic, atraumatic. External ears without defect. Pupils equal, round, and reactive to light and accommodation. Neck: Supple with full range of motion. No jugular venous distension. Cardiovascular: Regular rate and rhythm with no murmurs appreciated Pulmonary: Clear to auscultation bilaterally with no crackles, wheezes. Normal respiratory effort with no use of accessory muscles. Abdomen: Tender to palpation left upper quadrant and epigastric area. Otherwise soft nontender to palpation other 3 quadrants. Extremities: No clubbing, cyanosis, or edema appreciated. Tremulous, improved from yesterday Skin: Normal temperature, turgor, and texture. No diaphoresis seen Neurological: Cranial nerves grossly intact. Psychiatric: Normal mood and affect. Alert and oriented to person, place, and time. IVs and Medications Medications Reviewed: Medications were reviewed in detail Lab and Diagnostics Result Diagram: 03/16/17 0510 03/16/17 0510 X-Rays, CTs and MRIs . CT ABDOMEN AND PELVIS WITH CONTRAST 1. Mild inflammatory changes and trace free fluid noted adjacent to the pancreas suspicious for pancreatitis. Please correlate with clinical and laboratory data. 2. Hepatic steatosis. Dictated by: Jennifer William MD, PhD on 03/13/2017 at 19:53 X-RAY PICC LINE PLACEMENT BY NURSE IMPRESSION: Tip of PICC lies within the lower SVC. Dictated by: Gregg Cerna M.D. on 03/15/2017 at 16:57 Assessment & Plan 36 year old male with a history of hypertension, depression, and polysubstance abuse including active alcohol abuse and report of prior IV heroin (on Methadone for past 2 years) presents with complaint of ongoing abdominal pain, nausea and vomiting since one day prior to presentation. Hospital day 4 Pancreatitis. Acute area present on admission. Improving - Secondary to chronic EtOH abuse - (long-standing use of 1 pint of hard liquor and sixpack of beer nightly) - CT showed fluid adjacent to the pancreas - Elevated lipase on admission, trending down - Elevated LDL - Stop Dilaudid 1-2 mg IV every 4 when necessary - Changes and to outpatient methadone dose 100 mg daily - Stop IV fluids - Advance diet as tolerated - Advanced to oral medications Alcohol dependence. Acute on chronic. Present on admission. Ongoing. - History of EtOH withdrawal with reported seizures - Stop CIWA protocol - Ativan instead of Valium secondary to patient preference - DC'd Precedex - Start chlordiazepoxide - Social work consult History of hypertension, poorly controlled on admission. Chronic. Ongoing - Restart home metoprolol - Hold if heart rate below 60 Opioid dependence, currently reportedly on Methadone. Present admission. Chronic. Ongoing - Methadone home dose verified with his methadone clinic 100mg daily - Stop IV Dilaudid 2 mg every 4 History of depression, presumed stable. - Restart home duloxetine History of GERD. Present admission. Chronic. Ongoing - IV Protonix while NPO and then change to PO when able to tolerate Acute hypokalemia, present on admission. Chronic. Resolved - Calcium levels normalized - Potassium magnesium replacement protocol Elevated liver function tests, unclear chronicity but likely chronic and due to history of alcohol abuse. Present on admission. Soft -Repeat labs showed normalization of AST ALT -Continue to monitor Insomnia. Present on admission. Ongoing. Chronic - Restart home Ambien Gout. Present on admission. Ongoing. Chronic - Restart home allopurinol Disposition: Anticipate discharge tomorrow, patient transitioned to oral medications. Pain Evaluation: Adequate Pain Control GI Prophylaxis: Proton Pump Inhibitor VTE Prophylaxis: Sub-Q Heparin (Unfractionated) Resuscitation Status: CPR: Attempt Resuscitation (discussed and verified with patient) Attending Statement The patient was seen and examined together with Dr. Beauchamp on 03/16/2017 and I agree with the history, exam and plan as outlined in the note above. . IMELDA BEAUCHAMP DO Mar 16, 2017 17:24 Cayetano Luz MD Mar 17, 2017 01:47
--- NOTE | 2017-03-16 18:00 | NUR ---
[facility] to [facility] Patient arrived to unit via wheelchair. Patient stated, "I am starting to feel shaky, can I have some medication" when nurse welcomed him. Patient reporting he had head "fullness"/pain 05/30 and pancreatic pain-migrating to back 05/30. Patient also reporting "mild nausea"-refusing a liquid dinner, "I will do my best with the general diet". Patient sitting in bed watching tv.
[2017-03-16] MEDS: chlordiazePOXIDE 25 mg Capsule PO PRN (18:18)
[2017-03-16] MEDS ORDERED: Sodium Chloride LOK Flush 10 mL Syringe IVFLUSH PRN ×2 (18:20)
[2017-03-17] MEDS: chlordiazePOXIDE 25 mg Capsule PO PRN ×5 (00:22→22:08)
[2017-03-17] MEDS: Heparin 5,000 Unit/mL Inj SUBQ SCH ×4 (00:22→23:47)
[2017-03-17 00:26] VITALS: BP 155/100; PULSE 68; RESP 20; O2SAT 97
--- NOTE | 2017-03-17 00:40 | NUR ---
Medication Pt is unable to sleep. He appears slightly restless. Given librium 25mg PO Will monitor for effectiveness.
[2017-03-17 05:53] LABS: BASOPHILS % (AUTO) 0.1 % (0-3); EOSINOPHILS % (AUTO) 3.7 % (0-5); MONOCYTES % (AUTO) 12.3 % (4-12); Mean Corpuscular Hemoglobin 32.5 pg (27.0-35.0); Mean Corpuscular Volume 101.2 fL (81-100); NEUTROPHILS % (AUTO) 64.7 % (40-74); Platelet Count 204 bil/L (150-400)
[2017-03-17 06:01] VITALS: BP 166/96; PULSE 61; RESP 18; O2SAT 95
[2017-03-17] MEDS: Pantoprazole 4 mg/mL 10 mL Inj IVPUSH SCH (08:33)
[2017-03-17] MEDS: Multivit-Miner-Folic Acid-Iron Tablet PO SCH (08:36)
[2017-03-17] MEDS: DULoxetine 30 mg DR Capsule PO SCH (08:45)
[2017-03-17 13:30] VITALS: PULSE 67; RESP 16; O2SAT 92
[2017-03-17 13:34] VITALS: BP 153/91; PULSE 67; RESP 18; O2SAT 98
--- NOTE | 2017-03-17 16:23 | NUR ---
Headache/neuro Pt reported a 7/10 ROS[place]HAL. Administered 650mg PO tylenol. Upon reassessment pt stated that his headache was still present but more tolerable at a 5/10. Pt stated that he felt shaky and that the Librium was not working and requested Ativan. Pt displayed no visible tremors. Previous CIWA score was 3. notified. Administered one time dose of 1mg IVP Ativan. Reassessed pt and he stated that he "felt much better and it took the edge off."
--- NOTE | 2017-03-17 16:29 | PCM.PNMED ---
Subjective Date of Service Mar 17, 2017 Subjective continues to feel shaky,librium not fully controlling his symptoms Exam Vital Signs Vital Sign - Last Date Time Temp Pulse Resp B/P Pulse Ox O2 Delivery O2 Flow Rate FiO2 03/17/17 13:34 36.6 67 18 153/91 98 Room Air 03/16/17 21:09 3.00 Intake and Output 03/16/17 03/16/17 03/17/17 Cumulative From/Thru 15:00 23:00 07:00 03/13/17 12:20 - 03/17/17 06:13 Intake Total 2177 ml 1436 ml 98799 ml Output Total 1775 ml 2150 ml 47015 ml Balance 402 ml -714 ml 1899 ml Intake Oral 1090 ml 1436 ml 6131 ml IV Total 1087 ml 9748 ml Output Urine Total 1775 ml 2150 ml 24691 ml # Bowel Movements 0 Exam General: No acute distress, well-developed, well-nourished, appropriately interactive sitting up in hospital bed HEENT: Normocephalic, atraumatic. External ears without defect. Pupils equal, round, and reactive to light and accommodation. Neck: Supple with full range of motion. No jugular venous distension. Cardiovascular: Regular rate and rhythm with no murmurs appreciated Pulmonary: Clear to auscultation bilaterally with no crackles, wheezes. Normal respiratory effort with no use of accessory muscles. Abdomen: Tender to palpation left upper quadrant and epigastric area. Otherwise soft nontender to palpation other 3 quadrants. Extremities: No clubbing, cyanosis, or edema appreciated. Tremulous, improved from yesterday Skin: Normal temperature, turgor, and texture. No diaphoresis seen Neurological: Cranial nerves grossly intact. Psychiatric: Normal mood and affect. Alert and oriented to person, place, and time. IVs and Medications Medications Reviewed: Medications were reviewed in detail Lab and Diagnostics Result Diagram: 03/17/1749 03/17/1749 X-Rays, CTs and MRIs . CT ABDOMEN AND PELVIS WITH CONTRAST 1. Mild inflammatory changes and trace free fluid noted adjacent to the pancreas suspicious for pancreatitis. Please correlate with clinical and laboratory data. 2. Hepatic steatosis. Dictated by: Jennifer William MD, PhD on 03/13/2017 at 19:53 X-RAY PICC LINE PLACEMENT BY NURSE IMPRESSION: Tip of PICC lies within the lower SVC. Dictated by: Gregg Cerna M.D. on 03/15/2017 at 16:57 Assessment & Plan 36 year old male with a history of hypertension, depression, and polysubstance abuse including active alcohol abuse and report of prior IV heroin (on Methadone for past 2 years) presents with complaint of ongoing abdominal pain, nausea and vomiting since one day prior to presentation. Hospital day 4 # Pancreatitis. Acute area present on admission. Improving - Secondary to chronic EtOH abuse - (long-standing use of 1 pint of hard liquor and sixpack of beer nightly) - CT showed fluid adjacent to the pancreas - Elevated lipase on admission, trending down - Elevated LDL - Stop Dilaudid 1-2 mg IV every 4 when necessary - Changes and to outpatient methadone dose 100 mg daily # Alcohol dependence. Acute on chronic. Present on admission. Ongoing. - History of EtOH withdrawal with reported seizures - Stop CIWA protocol - Ativan instead of Valium secondary to patient preference - DC'd Precedex - Start chlordiazepoxide - Social work consult -required ativan today 03/17 History of hypertension, poorly controlled on admission. Chronic. Ongoing - Restart home metoprolol - Hold if heart rate below 60 Opioid dependence, currently reportedly on Methadone. Present admission. Chronic. Ongoing - Methadone home dose verified with his methadone clinic 100mg daily - Stop IV Dilaudid 2 mg every 4 History of depression, presumed stable. - Restart home duloxetine History of GERD. Present admission. Chronic. Ongoing - IV Protonix while NPO and then change to PO when able to tolerate Acute hypokalemia, present on admission. Chronic. Resolved - Calcium levels normalized - Potassium magnesium replacement protocol Elevated liver function tests, unclear chronicity but likely chronic and due to history of alcohol abuse. Present on admission. Soft -Repeat labs showed normalization of AST ALT -Continue to monitor Insomnia. Present on admission. Ongoing. Chronic - Restart home Ambien Gout. Present on admission. Ongoing. Chronic - Restart home allopurinol Disposition: Anticipate discharge tomorrow if continues to improve and withdrawal symptoms controlled GI Prophylaxis: Proton Pump Inhibitor VTE Prophylaxis: Sub-Q Heparin (Unfractionated) Resuscitation Status: CPR: Attempt Resuscitation (discussed and verified with patient) Jose Eduardo Smith MD Mar 17, 2017 16:29 Jose Eduardo Smith MD Mar 17, 2017 16:29
[2017-03-17 20:30] VITALS: BP 158/93; PULSE 75; RESP 18; O2SAT 95
--- NOTE | 2017-03-17 22:10 | NUR ---
Medication Pt requests librium for anxiety/restless Given as ordered for ETOH withdrawal. He is pleasant and cooperative. Will cont to monitor
[2017-03-18 05:25] VITALS: BP 119/68; PULSE 65; RESP 20; O2SAT 95
--- NOTE | 2017-03-18 09:07 | PCM.DIMED ---
Discharge Instructions Date of Service Mar 18, 2017 Dates of Hospitalization Mar 13, 2017 at 14:31 Discharge Diagnosis Discharge Diagnosis # Pancreatitis. Acute area present on admission. Improving - Secondary to chronic EtOH abuse - (long-standing use of 1 pint of hard liquor and sixpack of beer nightly) # Alcohol dependence. Acute on chronic. Present on admission. Ongoing. # History of hypertension, poorly controlled on admission. Chronic. Ongoing # Opioid dependence, currently reportedly on Methadone. Present admission. Chronic. Ongoing History of depression, presumed stable. History of GERD. Present admission. Chronic. Ongoing Acute hypokalemia, present on admission. Chronic. Resolved Elevated liver function tests, unclear chronicity but likely chronic and due to history of alcohol abuse. Present on admission. Insomnia. Present on admission. Ongoing. Chronic Gout. Present on admission. Ongoing. Chronic Diet Low fat, Low Sodium, Heart Healthy Activity Limited until seen by PCP Call your provider Fever or Chills, Shortness of breath, Bleeding, Chest pain, Vomitting, Excessive diarrhea, Weakness (unilateral) Patient Instructions You were hospitalized to due to alcoholic pancreatitis. Symptoms resolved with IV fluids. You also had symptom of alcohol withdrawal. Please continue Librium for alcohol withdrawal symptoms. Please follow-up with pain clinic and AA for alcohol and substance dependence. Please follow-up with PCP in 1 week. Please abstain from alcohol as counseled. Follow-up plan Follow-up with PCP in one week Follow-up Provider: Cayetano Phillip MD Follow-up with PCP in: 1 week Jose Eduardo Smith MD Mar 18, 2017 09:07
[2017-03-18] MEDS ORDERED: CHLO25CA10 PO (09:08)
--- NOTE | 2017-03-18 09:21 | PCM.DC.MED ---
Discharge Summary Date of Service Mar 18, 2017 Dates of Hospitalization Date of Hospital Admission Mar 13, 2017 at 14:31 Date of Discharge: Mar 18, 2017 Providers: Admitting Physician: Syed Pedraza Primary Care Physician: Cayetano Phillip MD Attending Physician: Syed Pedraza Diagnosis at Time of Discharge Diagnosis at Time of Discharge # Pancreatitis. Acute area present on admission. Improving - Secondary to chronic EtOH abuse - (long-standing use of 1 pint of hard liquor and sixpack of beer nightly) # Alcohol dependence. Acute on chronic. Present on admission. Ongoing. # History of hypertension, poorly controlled on admission. Chronic. Ongoing # Opioid dependence, currently reportedly on Methadone. Present admission. Chronic. Ongoing History of depression, presumed stable. History of GERD. Present admission. Chronic. Ongoing Acute hypokalemia, present on admission. Chronic. Resolved Elevated liver function tests, unclear chronicity but likely chronic and due to history of alcohol abuse. Present on admission. Insomnia. Present on admission. Ongoing. Chronic Gout. Present on admission. Ongoing. Chronic Consultations none Procedures XRay, CTs & MRIs . CT ABDOMEN AND PELVIS WITH CONTRAST 1. Mild inflammatory changes and trace free fluid noted adjacent to the pancreas suspicious for pancreatitis. Please correlate with clinical and laboratory data. 2. Hepatic steatosis. Dictated by: Jennifer William MD, PhD on 03/13/2017 at 19:53 X-RAY PICC LINE PLACEMENT BY NURSE IMPRESSION: Tip of PICC lies within the lower SVC. Dictated by: Gregg Cerna M.D. on 03/15/2017 at 16:57 Brief History per HPI by Dr Pedraza on 03/13/17 35 year old male with a history of hypertension, depression, and polysubstance abuse including active alcohol abuse and report of prior IV heroin (on Methadone for past 2 years) presents today with complaint of ongoing abdominal pain, nausea and vomiting since yesterday morning. He has not been able to keep any alcohol or medications (including Methadone) down since yesterday and thus presented to ED due to concern for withdrawal and further workup and management of his symptoms. He describes the abdominal pain as mid epigastric and radiating all the way across the left side to his back. He has had about 20 episodes of vomiting since yesterday without any noted hematemesis or coffee- ground emesis. He denies any fever, chills, recent travel, exotic food, or sick contacts. He last kept alcohol down 2 nights ago and tried to drink his regular alcohol yesterday but as noted was not able to keep it down. His review of systems is also positive for chronic lower extremity edema ( unchanged in recent days), mild frontal headache (not unusual for him), right ankle pain due to recent injury, and some weight gain in recent years. In the ED he was noted to have evidence of withdrawal and received several doses of Diazepam. Hospital Course 36 year old male with a history of hypertension, depression, and polysubstance abuse including active alcohol abuse and report of prior IV heroin (on Methadone for past 2 years) presents with complaint of ongoing abdominal pain, nausea and vomiting since one day prior to presentation. Hospital day 4 # Pancreatitis. Acute area present on admission. Improving - Secondary to chronic EtOH abuse - (long-standing use of 1 pint of hard liquor and sixpack of beer nightly) - CT showed fluid adjacent to the pancreas - Elevated lipase on admission, trending down - Elevated LDL - Treated with Dilaudid 1-2 mg IV every 4 when necessary - Changed to outpatient methadone dose 100 mg daily # Alcohol dependence. Acute on chronic. Present on admission. Ongoing. - History of EtOH withdrawal with reported seizures - Treated with CIWA protocol - Ativan instead of Valium secondary to patient preference -Required Precedex - Start chlordiazepoxide. Will discharge on chlordiazepoxide - Social work consult for CD assessment and outpatient resource information -required ativan 03/17 #History of hypertension, poorly controlled on admission. Chronic. Ongoing - Restart home metoprolol #Opioid dependence, currently reportedly on Methadone. Present admission. Chronic. Ongoing - Methadone home dose verified with his methadone clinic 100mg daily - Stop IV Dilaudid 2 mg every 4 #History of depression, presumed stable. - Restart home duloxetine #History of GERD. Present admission. Chronic. Ongoing - IV Protonix then change to home PO omeprazole upon discharge #Acute hypokalemia, present on admission. Chronic. Resolved - Calcium levels normalized - Potassium magnesium replacement protocol #Elevated liver function tests, unclear chronicity but likely chronic and due to history of alcohol abuse. Present on admission. Resolved -Repeat labs showed normalization of AST ALT #Insomnia. Present on admission. Ongoing. Chronic - Restart home Ambien #Gout. Present on admission. Ongoing. Chronic - Restart home allopurinol Disposition: discharge home Condition on discharge stable Counseled on alcohol cessation Exam Vital Signs (Last) Date Time Temp Pulse Resp B/P Pulse Ox O2 Delivery O2 Flow Rate FiO2 03/18/17 05:25 36.7 65 20 119/68 95 Room Air 03/16/17 21:09 3.00 Exam General: No acute distress, well-developed, well-nourished, appropriately interactive sitting up in hospital bed HEENT: Normocephalic, atraumatic. External ears without defect. Pupils equal, round, and reactive to light and accommodation. Neck: Supple with full range of motion. No jugular venous distension. Cardiovascular: Regular rate and rhythm with no murmurs appreciated Pulmonary: Clear to auscultation bilaterally with no crackles, wheezes. Normal respiratory effort with no use of accessory muscles. Abdomen: soft nontender to palpation Extremities: No clubbing, cyanosis, or edema appreciated. Tremulous, improved from yesterday Skin: Normal temperature, turgor, and texture. No diaphoresis seen Neurological: Cranial nerves grossly intact. Psychiatric: Normal mood and affect. Alert and oriented to person, place, and time. Test 03/13/17 13:00 03/13/17 13:53 03/14/17 03:17 03/15/17 03:20 Hold [place]ilar Top Tube Received (Received) Alcohols < 10mg/dL (0-10) Hold Urine Received (Received) Prothrombin Time 10.7sec (8.1-12.5) Prothromb Time International Ratio 1.00ratio Activated Partial Thromboplast Time 25.9sec (22.8-33.0) Triglycerides Level 108mg/dL (0-149) Cholesterol Level 180mg/dL (100-199) LDL Cholesterol, Calculated 134.400mg/dL (0-99) VLDL Cholesterol 21.600mg/dL HDL Cholesterol 24mg/dL (>39) Cholesterol/HDL Ratio 7.50 (0.0-4.4) Hemoglobin A1c 4.8% (4.8-5.6) Lactic Acid Level 0.8mmol/L (0.4-2.0) Test 03/16/17 05:10 03/17/17 05:49 Phosphorus Level 3.2mg/dL (2.5-4.9) Magnesium Level 1.9mg/dL (1.6-2.6) Lipase 131U/L (13-60) White Blood Count 7.0th/mm3 (3.8-10.1) Red Blood Count 4.09mil/mm3 (4.40-5.80) Hemoglobin 13.3g/dL (13.8-17.2) Hematocrit 41.4% (41.0-50.0) Mean Corpuscular Volume 101.2fL (81-100) Mean Corpuscular Hemoglobin 32.5pg (27.0-35.0) Mean Corpuscular Hemoglobin Concent 32.1% (32.0-37.0) Red Cell Distribution Width 15.0% (12.3-15.4) Platelet Count 204bil/L (150-400) Neutrophils (%) (Auto) 64.7% (40-74) Lymphocytes (%) (Auto) 18.9% (14-46) Monocytes (%) (Auto) 12.3% (4-12) Eosinophils (%) (Auto) 3.7% (0-5) Basophils (%) (Auto) 0.1% (0-3) Sodium Level 139mEq/L (134-144) Potassium Level 4.5mEq/L (3.5-5.2) Chloride Level 102mEq/L (97-108) Carbon Dioxide Level 24mmol/L (18-29) Blood Urea Nitrogen 4mg/dL (6-20) Creatinine 0.50mg/dL (0.76-1.27) Estimat Glomerular Filtration Rate 199mL/min (>59) Glucose Level 78mg/dL (60-99) Calcium Level 8.9mg/dL (8.5-10.1) Total Bilirubin 1.2mg/dL (0.0-1.2) Aspartate Amino Transf (AST/SGOT) 70U/L (0-50) Alanine Aminotransferase (ALT/SGPT) 42U/L (0-44) Alkaline Phosphatase 150U/L (25-150) Total Protein 6.4g/dL (6.4-8.4) Albumin 3.5g/dL (3.4-5.0) Discharge Medications Discharge Medications Allopurinol (Allopurinol) 100 Mg Tablet 100 MG PO DAILY (Reported) Duloxetine (Duloxetine) 60 Mg Capsule.dr 60 MG PO DAILY (Reported) Magnesium Oxide (Magnesium) 400 Mg Tablet 400 MG PO DAILY (Reported) Methadone (Methadone) 10 Mg/5 Ml Solution 100 MG PO AM (Reported) Metoprolol Tartrate (Metoprolol Tartrate) 50 Mg Tablet 50 MG PO BID (Reported) Omeprazole (Omeprazole) 20 Mg Tablet.dr 20 MG PO DAILY (Reported) Potassium Chloride (Potassium Chloride) 20 Meq Tab.er.prt 20 MEQ PO DAILY ( Reported) TAKE WITH FOOD Testosterone Cypionate (Testosterone Cypionate) 200 Mg/1 Ml Vial 200 MG IM q 21 days (Reported) Trazodone (Trazodone) 100 Mg Tablet 300 MG PO HS (Reported) As needed Albuterol Sulfate (Ventolin HFA Inhaler) 200 Puff/18 Gm Inhaler 1 PUFF INH Q4 PRN PRN For Wheezing (Reported) Chlordiazepoxide (Chlordiazepoxide) 25 Mg Capsule 25 MG PO Q4 PRN PRN ETOH WITHDRAWAL Prescribed by: AGUSTINA VENTURA MD Fluticasone Propionate (Fluticasone Propionate Nasal) 16 Gm [place].susp 2 SPRAY NOSTRIL DAILY PRN PRN For Congestion (Reported) Ibuprofen (Ibuprofen) 800 Mg Tablet 800 MG PO TID PRN PRN For Pain Prescribed by: MARYLU GUTIERREZ DO Zolpidem (Ambien) 5 Mg Tab 10 MG PO HS PRN PRN For Insomnia (Reported) Followup Plan Disposition: Home Follow-up plan Follow-up with PCP in one week Discharge Diet: Low fat, Low Sodium, Heart Healthy Discharge Activity: Limited until seen by PCP Patient Instructions You were hospitalized to due to alcoholic pancreatitis. Symptoms resolved with IV fluids. You also had symptom of alcohol withdrawal. Please continue Librium for alcohol withdrawal symptoms. Please follow-up with pain clinic and AA for alcohol and substance dependence. Please follow-up with PCP in 1 week. Please abstain from alcohol as counseled. Follow-up Provider: Cayetano Phillip MD Follow-up with PCP in: 1 week Time spent 40 minutes counseling patient and coordinating discharge copies to: Cayetano Phillip MD, Melaku MD Mar 18, 2017 09:21
[2017-03-18] MEDS: Pantoprazole 4 mg/mL 10 mL Inj IVPUSH SCH (10:14)
[2017-03-18] MEDS: Multivit-Miner-Folic Acid-Iron Tablet PO SCH (10:15)
[2017-03-18] MEDS: DULoxetine 30 mg DR Capsule PO SCH (10:15)
[2017-03-18] MEDS: Heparin 5,000 Unit/mL Inj SUBQ SCH (10:17)
[2017-03-18] MEDS: chlordiazePOXIDE 25 mg Capsule PO PRN (10:19)
--- NOTE | 2017-03-18 12:00 | NUR ---
Discharge Reviewed discharge paperwork, care notes, and medications with pt - disclaimer signed. PICC line DCd intact by IV therapy, all belongings with pt. No s/sx distress. Pt declined WC and escort out of unit. Pt strong and steady on feet. Girlfriend driving pt home.
== END 2017-03-18 12:00 | disposition home or self-care (01) | DRG 282 ==
LOC: SED 12:17 → PCC 14:31 → CCU 03-14 01:47 → PCC 03-15 20:19 → MPC 03-16 16:45
PROVIDERS: ADMIT Internal Medicine; ATTEND Internal Medicine
DX: K85.20 Alcohol induced acute pancreatitis without necrosis or infection (principal); F10.239 Alcohol dependence with withdrawal, unspecified; F11.20 Opioid dependence, uncomplicated; I10 Essential (primary) hypertension; K21.9 Gastro-esophageal reflux disease without esophagitis; F17.210 Nicotine dependence, cigarettes, uncomplicated; F32.9 Major depressive disorder, single episode, unspecified; E87.6 Hypokalemia; G47.00 Insomnia, unspecified; M10.9 Gout, unspecified

== ENCOUNTER 2017-07-21 17:35 | Inpatient (IN) | payer OTHER ==
[~2017-07-21] VITALS: Ht 182.9 cm; Wt 122.4 kg
[~2017-07-21 17:35] MED LIST changes: +CHLO25CA10 PO; -DIAZ5TAB PO; +MAGN400T39 PO; +ZYL100 PO
[2017-07-21 17:49] VITALS: BP 156/96; PULSE 101; RESP 18; O2SAT 94
--- NOTE | 2017-07-21 19:06 | ED.REPORT ---
HPI-Abd Pain M Under 39 Date of Service Jul 21, 2017 ED Provider: Dr. Ocampo Pt is a 37 year old male with a hx of HTN, pancreatitis and alcohol abuse presenting to the ED complaining of severe abdominal pain radiating to his back onset yesterday. He reports that he drinks malt liquor. Denies fever, chills, diarrhea, dysuria, drug abuse. Nursing Notes Stated Complaint: PANCREATITIS Chief Complaint: Substance Abuse Nursing Notes Reviewed: Yes Allergies: Coded Allergies: sulfamethoxazole (Unverified Allergy, Intermediate, Hives, 12/03/16) Pt reports it occured immidiately after dose given by urgent care trimethoprim (Unverified Allergy, Intermediate, Hives, 12/03/16) Pt reports it occured immidiately after dose given by urgent care celecoxib (Verified Adverse Reaction, Intermediate, 12/03/16) DISGESTIVE ISSUES ibuprofen (Verified Adverse Reaction, Intermediate, 12/03/16) GASTRIC ISSUES Scheduled Allopurinol (Allopurinol) 100 Mg Tablet 100 MG PO DAILY Duloxetine (Duloxetine) 60 Mg Capsule.dr 60 MG PO DAILY Magnesium Oxide (Magnesium) 400 Mg Tablet 400 MG PO DAILY Methadone (Methadone) 10 Mg/5 Ml Solution 100 MG PO AM Metoprolol Tartrate (Metoprolol Tartrate) 50 Mg Tablet 50 MG PO BID Omeprazole (Omeprazole) 20 Mg Tablet.dr 20 MG PO DAILY Potassium Chloride (Potassium Chloride) 20 Meq Tab.er.prt 20 MEQ PO DAILY TAKE WITH FOOD Testosterone Cypionate (Testosterone Cypionate) 200 Mg/1 Ml Vial 200 MG IM q 21 days Trazodone (Trazodone) 100 Mg Tablet 300 MG PO HS Scheduled PRN Albuterol Sulfate (Ventolin HFA Inhaler) 200 Puff/18 Gm Inhaler 1 PUFF INH Q4 PRN PRN For Wheezing Chlordiazepoxide (Chlordiazepoxide) 25 Mg Capsule 25 MG PO Q4 PRN PRN ETOH WITHDRAWAL Fluticasone Propionate (Fluticasone Propionate Nasal) 16 Gm [place].susp 2 SPRAY NOSTRIL DAILY PRN PRN For Congestion Ibuprofen (Ibuprofen) 800 Mg Tablet 800 MG PO TID PRN PRN For Pain Zolpidem (Ambien) 5 Mg Tab 10 MG PO HS PRN PRN For Insomnia General Time Seen by MD: 19:05 Chief Complaint Abdominal pain Hx Obtained From: Patient Arrived By: Walk-in Sudden in Onset?: Yes Onset Occurred: Yesterday Symptom Duration: Since onset Progression since Onset: Constant Location: : Diffuse Quality: Painful Severity: Current: Severe Severity: Maximum: Severe Recent Healthcare: No recent doctor visit, No recent hospitalization Similar Sx Previous: Yes Past Medical History Past Medical History Notes: Admitted 03/17- for ETOH intox/withdrawal Note medications and often reconciled, but a discharge note from February 2015 indicate patient on maintenance methadone at 140 mg daily Past Medical History Seizures due to alcohol withdrawal Delrium tremens H/O polysubstance abuse History of chronic lower extremity edema History dyspepsia Reports: Asthma, GERD, Hypertension Past Surgical History Bladder surgery at age 4 right ankle fracture followed by [facility]ano Family History AAA Smoking History Current Every Day Smoker Social History Lives with mother and friend, Georgette. Cares for ill mother. 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 Physical Exam Initial Vital Signs Vital Signs (First) Date Time Temp Pulse Resp B/P Pulse Ox O2 Delivery O2 Flow Rate FiO2 07/21/17 17:49 36.4 101 18 156/96 94 Room Air 07/21/17 21:24 3 Initial VS: Reviewed Head / Eyes: Atraumatic, Normocephalic, PERRL ENT: Mucous membranes moist, Conjunctiva normal, No scleral icterus Extremities: Vascular intact, Neuro intact, No swelling, No tenderness Skin: Warm, Dry, No cyanosis Neurologic: Alert, Oriented, Nonfocal Psychiatric: Mood/affect normal, Behavior normal, Normal thought content General/Constitutional: Awake, Alert, No acute distress Tremor Respiratory / Chest: Atraumatic, Breath sounds NL, Breath sounds = bilat, No respiratory distress Cardiovascular: Regular rhythm, Heart sounds NL, No murmurs Heart Rate / Rhythm: Positive: Tachycardia Abdomen: No guarding, No rebound Tenderness/Guarding/Rebound: Positive: Tender diffuse Interpretation & Diagnostics Lab Results Interpretation Result Diagram: 07/21/17213707/21/172137 Test 07/21/17 21:38 07/21/17 22:20 White Blood Count 11.5th/mm3 (3.8-10.1) Red Blood Count 4.31mil/mm3 (4.40-5.80) Hemoglobin 14.8g/dL (13.8-17.2) Hematocrit 43.6% (41.0-50.0) Mean Corpuscular Volume 101.2fL (81-100) Mean Corpuscular Hemoglobin 34.3pg (27.0-35.0) Mean Corpuscular Hemoglobin Concent 33.9% (32.0-37.0) Red Cell Distribution Width 15.2% (12.3-15.4) Platelet Count 149bil/L (150-400) Neutrophils (%) (Auto) 81.3% (40-74) Lymphocytes (%) (Auto) 9.7% (14-46) Monocytes (%) (Auto) 7.7% (4-12) Eosinophils (%) (Auto) 0.7% (0-5) Basophils (%) (Auto) 0.1% (0-3) Sodium Level 134mEq/L (134-144) Potassium Level 3.0mEq/L (3.5-5.2) Chloride Level 93mEq/L (97-108) Carbon Dioxide Level 26mmol/L (18-29) Blood Urea Nitrogen 2mg/dL (6-20) Creatinine 0.41mg/dL (0.76-1.27) Estimat Glomerular Filtration Rate 249mL/min (>59) Glucose Level 92mg/dL (60-99) Lactic Acid Level 1.5mmol/L (0.4-2.0) Calcium Level 8.3mg/dL (8.5-10.1) Magnesium Level 1.6mg/dL (1.6-2.6) Total Bilirubin 1.4mg/dL (0.0-1.2) Aspartate Amino Transf (AST/SGOT) 120U/L (0-50) Alanine Aminotransferase (ALT/SGPT) 65U/L (0-44) Alkaline Phosphatase 240U/L (25-150) Total Protein 7.0g/dL (6.4-8.4) Albumin 3.1g/dL (3.4-5.0) Lipase 953U/L (13-60) Urine Color Yellow (YELLOW) Urine Appearance Clear (CLEAR,HAZY) Urine pH 8.0 (5.0-8.0) Urine Specific [place] 1.010 (1.003-1.035) Urine Protein Negativemg/dL (NEG,TRACE) Urine Glucose (UA) Negativemg/dL (NEGATIVE) Urine Ketones Negativemg/dL (NEGATIVE) Urine Occult Blood Negative (NEGATIVE) Urine Nitrite Negative (NEGATIVE) Urine Bilirubin Negative (NEGATIVE) Urine Urobilinogen Normalmg/dL (NORMAL) Urine Leukocyte Esterase Negative (NEGATIVE) Urine RBC 0-2/hpf (0-2) Urine WBC 0-5/hpf (0-5) Urine Epithelial Cells Occasional/hpf (NONE-MOD) Urine Crystals None seen (NONE SEEN) Urine Bacteria None/hpf (NONE-FEW) Urine Hyaline Casts None/lpf (NONE) Urine Granular Casts None seen (NONE SEEN) Urine Waxy Casts None seen (NONE SEEN) Urine Red Blood Cell Casts None seen (NONE SEEN) Urine White Blood Cell Casts None seen (NONE SEEN) Urine Mucus None seen (None Seen) Urine Trichomonas None seen (NONE SEEN) Urine Yeast None (NONE SEEN) Urinalysis Comment None Urine Culture Reflexed Not indicated ECG Interpretation ECG Interpretation: Left atrial enlargement. Inferior infarct, old. Time: 20:16 Interpreted by: ED physician Normal ECG Interpretation: Normal rate (96), Normal sinus rhythm Re-Eval/Medical Decision Med Decision/Clinical Course Molt liquor consumption is lead to acute pancreatitis biochemically and this matches the history and physical. Mild alcohol withdrawal symptoms are present. Plan for admission for treatment of both of these syndromes. He has had this in the past. At this time CT scan is not indicated due to the fact that he has clinical and biochemical pancreatitis. He will be admitted for hospitalist service. Re-Evaluation/Progress : Time of Eval: 23:19 Patient Status: Condition improved Re-Evaluation/Progress Note: Discussed plan for admission. Pt understands and agrees. Consultation : Referral / Consult Name: Sunday Mcadams MD Consulted With: Hospitalist Call Returned at: 23:13 Scout Executive: Will see patient, Agrees with plan, Accepts admit Counseled Regarding: Diagnosis, Lab results, Need for admission Patient Discharge & Departure Primary Impression: Acute pancreatitis Pancreatitis type: alcohol induced Acute pancreatitis complication: unspecified Qualified Code: K85.20 - Alcohol induced acute pancreatitis without necrosis or infection Additional Impression: Alcohol withdrawal Complication of substance-induced condition: with unspecified complication Qualified Code: F10.239 - Alcohol dependence with withdrawal, unspecified Disposition: ADMITTED TO HOSPITAL Discharge Condition All VS Reviewed: Yes Condition: Improved Referrals: Cayetano Phillip MD (PCP) Nayla Attestation Portions of this note were transcribed by Sarai Hopper. I, Dr. Ocampo personally performed the history, physical exam and medical decision-making; I reviewed and confirmed the accuracy of the information in the transcribed note. Signed by : Nayla Gonzalez, 07/21/2017. copies to: Cayetano Phillip MD, Todd P DO Jul 21, 2017 19:06 SARAI HOPPER Jul 21, 2017 19:29
[2017-07-21] MEDS: 0.9% Sodium Chloride 1,000 ML IV ONE (19:29)
[2017-07-21] MEDS ORDERED: Ondansetron 2 mg/mL 2 mL Inj IVPUSH PRN (19:30)
[2017-07-21] MEDS: HYDROmorphone 1 mg/mL Inj IVPUSH PRN ×3 (20:49→21:12)
[2017-07-21] MEDS: HYDROmorphone 1 mg/mL Inj IM ONE ×2 (20:56→21:00)
[2017-07-21 21:24] VITALS: BP 148/93; PULSE 96; RESP 20; O2SAT 96
[2017-07-21 21:48] LABS: BASOPHILS % (AUTO) 0.1 % (0-3); EOSINOPHILS % (AUTO) 0.7 % (0-5); MONOCYTES % (AUTO) 7.7 % (4-12); Mean Corpuscular Hemoglobin 34.3 pg (27.0-35.0); Mean Corpuscular Volume 101.2 fL (81-100); NEUTROPHILS % (AUTO) 81.3 % (40-74); Platelet Count 149 bil/L (150-400)
[2017-07-21 22:25] LABS: Magnesium 1.6 mg/dL (1.6-2.6)
[2017-07-21 22:32] LABS: APPEARANCE,URINE CLEAR (CLEAR,HAZY); COLOR,URINE YELLOW (YELLOW); OCCULT BLOOD,URINE NEGATIVE (NEGATIVE); UROBILINOGEN,URINE NORMAL (NORMAL)
[2017-07-21] MEDS ORDERED: Alum-Mag Hydrox-Simeth 30 mL Suspension PO PRN (23:15)
[2017-07-21] MEDS ORDERED: Polyethylene Glycol (PEG) 17 Gm Powder PO PRN (23:15)
[2017-07-21] MEDS ORDERED: Thiamine Inj 100 MG, Folic Acid Inj 1 MG, Magnesium Sulfate 50% Inj 2 GM, Multivitamins... IV ONE ×5 (23:15)
--- NOTE | 2017-07-21 23:27 | PCM.HPMED ---
Subjective Date of Service Jul 21, 2017 Primary Provider: Admitting Physician: Sunday Mcadams MD Primary Care Physician: Cayetano Phillip MD Attending Physician: Sunday Mcadams MD Admit Status: From the Emergency Department, Full Admit, [facility] Telemetry Chief Complaint: Abdominal pain History of Present Illness: Valerio Hernandez is a 37 year old male with Hypertension, depression, and polysubstance abuse including active alcohol abuse and report of prior IV heroin (on Methadone previously) presents to [facility] emergency department complaining of severe abdominal pain Patient reported pain is located in the epigastric region, crampy in nature and radiating to his back onset yesterday. He reports that he drinks malt liquor and last drank 5 days ago. Denies fever, chills, diarrhea, dysuria, drug abuse. Patient was admitted for similar reasons back in December. He continues to drink alcohol and also smokes on a daily basis. Case discussed with Dr Ocampo, Lipase significantly elevated and consistent with pancreatitis. Alcohol withdrawal symptoms also seen. Plans to admit Review of Systems: Pertinent positives as noted in HPI. All other systems were reviewed and are negative Allergies Coded Allergies: sulfamethoxazole (Unverified Allergy, Intermediate, Hives, 12/03/16) Pt reports it occured immidiately after dose given by urgent care trimethoprim (Unverified Allergy, Intermediate, Hives, 12/03/16) Pt reports it occured immidiately after dose given by urgent care celecoxib (Verified Adverse Reaction, Intermediate, 12/03/16) DISGESTIVE ISSUES ibuprofen (Verified Adverse Reaction, Intermediate, 12/03/16) GASTRIC ISSUES Home Medications From [facility], not yet confirmed Valerio Barrera [id number] 1980 06/06/2017 04:35 PM 11/25 allopurinol 100 mg tablet take 1 tablet by oral route every day Antabuse 250 mg tablet take 1 tablet by oral route every day chlordiazepoxide 25 mg capsule take 1 capsule by oral route every 6 hours x 3 days then every 8 hours x 3 days then every 12 hours DULOXETINE HCL 60MG CAPSULE TAKE (1) CAPSULE BY MOUTH ONCE DAILY. IBUPROFEN 800 MG TABLET TAKE (1) TABLET BY MOUTH EVERY FOUR TO SIX HOURS NEEDED FOR POST OP RIGHT ANKLE PAIN. ibuprofen 800 mg tablet take 1 tablet by oral route 3 times every day with food LASIX 20MG TABLET TAKE (1) TABLET BY MOUTH TWICE DAILY. LIDOCAINE 5% PATCH APPLY ONE PATCH DAILY. MAY WEAR FOR 12 HOURS MAXZIDE 37.5 MG-25 MG TABLET TAKE (1) TABLET BY MOUTH ONCE DAILY. methadone 10 mg/5 mL oral solution take 1.25 milliliter by oral route once daily METOPROLOL 50MG TAB TAKE 1 TABLET ORALLY TWICE DAILY WITH MEALS penicillin V potassium 500 mg tablet take 1 tablet by oral route every 6 hours phentermine 37.5 mg tablet take 1 tablet by oral route every day before breakfast POTASSIUM CHL 20MEQ TAB TAKE (1) TABLET BY MOUTH ONCE DAILY. pravastatin 10 mg tablet take 1 tablet by oral route every day PROAIR HFA 90 MCG INHALER INHALE 1 OR 2 PUFFS ORALLY EVERY 4 HOURS NEEDED testosterone cypionate 100 mg/mL intramuscular oil inject 0.5 milliliter by intramuscular route every 4 weeks TRAZODONE 100 MG TABLET TAKE 1 TO 3 TABLETS ORALLY AT BEDTIME zolpidem 10 mg tablet take 1 tablet by oral route every day at bedtime as needed PMH Hypertension GERD Depression Polysubstance abuse including alcohol, heroin Obesity . Surgical History Debridement of a wound on his right leg (October 2015) Family History Denies any family history of DC/CVA/Cancer Social History Hx Alcohol Use: Yes (1 pint liqour, 6 pack beer daily) Hx Substance Use: Yes (former heroin, in methadone clinic) Hx Tobacco Use: Yes Smoking Status: Current Every Day Smoker Exam Vital Signs Vital Sign - Last Date Time Temp Pulse Resp B/P Pulse Ox O2 Delivery O2 Flow Rate FiO2 07/21/17 21:24 37.1 96 20 148/93 96 Nasal Cannula 3 Exam General: Alert, Oriented X3, Cooperative, No acute Distress Eyes: PERRLA, Scleral Anicteric Mouth: Mouth Normal, Mucous Membranes Moist/[place] Neck: Supple, no Thyromegaly, trachea central. Chest & Lungs: Clear to auscultation & percussion, No adventitious breath sounds, no crackles, no wheeze Cardiovascular: Normal S1, Normal S2, No Murmurs/Rubs/Gallops, Regular Rate/ Rhythm, (No JVD, no peripheral edema) Pulses: Radial (present and equal), Dorsalis Pedi (present and equal) Abdomen: Soft, mild epigastric tenderness, Non-distended, Normoactive bowel tones. Musculoskeletal: Unremarkable. Normal range of motion, no swollen or erythematous joints Extremities: No edema, no cyanosis, no clubbing. Skin: No rashes. Warm and dry, no erythematous areas. No Juan or Aguilar Preciado' s signs noted Neurological: Grossly neurologically intact, Normal Speech, Sensation Intact Lymphatic: Lymph nodes Cervical and Axillary not palpable. Lab and Diagnostics Labs Laboratory Tests Test 07/21/17 21:38 07/21/17 22:20 White Blood Count 11.5th/mm3 (3.8-10.1) Red Blood Count 4.31mil/mm3 (4.40-5.80) Hemoglobin 14.8g/dL (13.8-17.2) Hematocrit 43.6% (41.0-50.0) Mean Corpuscular Volume 101.2fL (81-100) Mean Corpuscular Hemoglobin 34.3pg (27.0-35.0) Mean Corpuscular Hemoglobin Concent 33.9% (32.0-37.0) Red Cell Distribution Width 15.2% (12.3-15.4) Platelet Count 149bil/L (150-400) Neutrophils (%) (Auto) 81.3% (40-74) Lymphocytes (%) (Auto) 9.7% (14-46) Monocytes (%) (Auto) 7.7% (4-12) Eosinophils (%) (Auto) 0.7% (0-5) Basophils (%) (Auto) 0.1% (0-3) Sodium Level 134mEq/L (134-144) Potassium Level 3.0mEq/L (3.5-5.2) Chloride Level 93mEq/L (97-108) Carbon Dioxide Level 26mmol/L (18-29) Blood Urea Nitrogen 2mg/dL (6-20) Creatinine 0.41mg/dL (0.76-1.27) Estimat Glomerular Filtration Rate 249mL/min (>59) Glucose Level 92mg/dL (60-99) Lactic Acid Level 1.5mmol/L (0.4-2.0) Calcium Level 8.3mg/dL (8.5-10.1) Magnesium Level 1.6mg/dL (1.6-2.6) Total Bilirubin 1.4mg/dL (0.0-1.2) Aspartate Amino Transf (AST/SGOT) 120U/L (0-50) Alanine Aminotransferase (ALT/SGPT) 65U/L (0-44) Alkaline Phosphatase 240U/L (25-150) Total Protein 7.0g/dL (6.4-8.4) Albumin 3.1g/dL (3.4-5.0) Lipase 953U/L (13-60) Urine Color Yellow (YELLOW) Urine Appearance Clear (CLEAR,HAZY) Urine pH 8.0 (5.0-8.0) Urine Specific [place] 1.010 (1.003-1.035) Urine Protein Negativemg/dL (NEG,TRACE) Urine Glucose (UA) Negativemg/dL (NEGATIVE) Urine Ketones Negativemg/dL (NEGATIVE) Urine Occult Blood Negative (NEGATIVE) Urine Nitrite Negative (NEGATIVE) Urine Bilirubin Negative (NEGATIVE) Urine Urobilinogen Normalmg/dL (NORMAL) Urine Leukocyte Esterase Negative (NEGATIVE) Urine RBC 0-2/hpf (0-2) Urine WBC 0-5/hpf (0-5) Urine Epithelial Cells Occasional/hpf (NONE-MOD) Urine Crystals None seen (NONE SEEN) Urine Bacteria None/hpf (NONE-FEW) Urine Hyaline Casts None/lpf (NONE) Urine Granular Casts None seen (NONE SEEN) Urine Waxy Casts None seen (NONE SEEN) Urine Red Blood Cell Casts None seen (NONE SEEN) Urine White Blood Cell Casts None seen (NONE SEEN) Urine Mucus None seen (None Seen) Urine Trichomonas None seen (NONE SEEN) Urine Yeast None (NONE SEEN) Urinalysis Comment None Urine Culture Reflexed Not indicated Result Diagram: 07/[id number] Assessment & Plan Valerio Hernandez is a 37 year old male with Hypertension, depression, and polysubstance abuse including active alcohol abuse and report of prior IV heroin (on Methadone previously) presents to [facility] emergency department complaining of severe abdominal pain 1. Acute abdominal pain secondary to Alcohol induced pancreatitis. present on admission. Previous episodes of alcohol induced pancreatitis. Meeting diagnosis with [place] criteria with 3X Lipase elevation and classic epigastric pain. Recurrent issue with this patient - Supportive care including IV fluid, antiemetics and IV Dilaudid as needed for pain - Check fasting lipid profile including triglyceride. - abstinence from alcohol encouraged 2 Alcohol withdrawal present on admission. No history of Alcohol withdrawal seizures. - continue CIWA protocol (Ativan protocol as Valium still not available) - Banana bag then daily Thiamine supplementation - Social work consult 3 Transaminitis, unclear chronicity. Present on admission Etiology likely secondary to Alcoholic Hepatitis. Other etiology includes Gallstone disease - will order an ultrasound in the morning to rule out gallstone disease - trending levels 4 Hypertension, Chronic - continue Metoprolol 50 mg bid 5 History of opioid (heroin) abuse, currently reportedly on Methadone - Verify home dose Methadone in the morning and resume if able to tolerate oral meds - In the meantime will continue with IV Morphine as needed for pain control 6 Depression, presumed stable. - continuing Duloxetine 60 mg daily 7 Nicotine Dependence. Cessation discussed and encouraged - Nicotine patch upon request - Acetaminophen as needed for mild pain/fever/headache - Bowel regimen as needed - Antiemetic as needed Patient admitted under inpatient status with expected length of stay > 2 midnights for severity of present symptoms, complexities of treatment plan and risk for adverse event . VTE Prophylaxis: Sub-Q Heparin (Unfractionated) Resuscitation Status: CPR: Attempt Resuscitation Sunday Mcadams MD Jul 21, 2017 23:27 Antabuse 250 mg tablet take 1 tablet by oral route every day chlordiazepoxide 25 mg capsule take 1 capsule by oral route every 6 hours x 3 days then every 8 hours x 3 days then every 12 hours IBUPROFEN 800 MG TABLET TAKE (1) TABLET BY MOUTH EVERY FOUR TO SIX HOURS NEEDED FOR POST OP RIGHT ANKLE PAIN. ibuprofen 800 mg tablet take 1 tablet by oral route 3 times every day with food LASIX 20MG TABLET TAKE (1) TABLET BY MOUTH TWICE DAILY. MAXZIDE 37.5 MG-25 MG TABLET TAKE (1) TABLET BY MOUTH ONCE DAILY. methadone 10 mg/5 mL oral solution take 1.25 milliliter by oral route once daily phentermine 37.5 mg tablet take 1 tablet by oral route every day before breakfast pravastatin 10 mg tablet take 1 tablet by oral route every day testosterone cypionate 100 mg/mL intramuscular oil inject 0.5 milliliter by intramuscular route every 4 weeks TRAZODONE 100 MG TABLET TAKE 1 TO 3 TABLETS ORALLY AT BEDTIME zolpidem 10 mg tablet take 1 tablet by oral route every day at bedtime as needed VTE Prophylaxis: Sub-Q Heparin (Unfractionated) Resuscitation Status: CPR: Attempt Resuscitation Sunday Mcadams MD Jul 21, 2017 23:27
[2017-07-21 23:39] VITALS: BP 143/94; PULSE 102; RESP 20; O2SAT 92
[2017-07-21] MEDS: Lactated Ringer's 1,000 ML IV SCH (23:40)
[2017-07-21] MEDS ORDERED: KCl 40 mEq/D5W 500 mL 40 MEQ in IV Premix 1 EACH IV ONE (23:50)
[2017-07-21] MEDS ORDERED: TRIA1TAB3 PO (23:53)
[2017-07-21] MEDS ORDERED: IBUP200C PO (23:53)
[2017-07-21] MEDS ORDERED: PRAV10TA2 PO (23:53)
[2017-07-21] MEDS ORDERED: FUR20 PO (23:53)
[2017-07-21] MEDS ORDERED: ZOLP10TA5 PO (23:53)
[2017-07-21] MEDS ORDERED: MULT-528 PO (23:55)
[2017-07-22] VITALS (7 sets, daily range): BP systolic 119–153; BP diastolic 80–103; PULSE 85–102; RESP 16–20; O2SAT 90–99
[2017-07-22] MEDS: HYDROmorphone 1 mg/mL Inj IVPUSH PRN ×4 (00:31→18:12)
[2017-07-22] MEDS: Ondansetron 2 mg/mL 2 mL Inj IVPUSH PRN ×2 (00:34→04:43)
[2017-07-22] MEDS: Heparin 5,000 Unit/mL Inj SUBQ SCH ×3 (00:40→16:30)
--- NOTE | 2017-07-22 02:15 | NUR ---
Admit Note Pt. arrived on floor at 2350. Pt. sleepy, but oriented. Pt's peripheral IV intact and patent with IV Lactated Ringer's going. Pt. had some abdominal pain and nausea. IV Dilaudid and Zofran given and effective. Pt's CIWA score was 13. Pt. oriented to room and call light. Will continue to monitor.
[2017-07-22 05:28] LABS: BASOPHILS % (AUTO) 0.1 % (0-3); EOSINOPHILS % (AUTO) 0.8 % (0-5); MONOCYTES % (AUTO) 7.2 % (4-12); Mean Corpuscular Hemoglobin 34.3 pg (27.0-35.0); Mean Corpuscular Volume 101.8 fL (81-100); NEUTROPHILS % (AUTO) 80.6 % (40-74); Platelet Count 72 bil/L (150-400)
[2017-07-22] MEDS: Lactated Ringer's 1,000 ML IV SCH ×2 (07:13→13:15)
[2017-07-22] MEDS: Multivit-Miner-Folic Acid-Iron Tablet PO SCH (08:30)
--- NOTE | 2017-07-22 09:10 | NUR ---
Heparin Withheld Heparin withheld r/t low platelet count per MD.
--- NOTE | 2017-07-22 11:14 | DRSVH ---
PROCEDURE: US ABDOMEN INDICATIONS: History of pancreatitis. Clinical concern for a gallstone TECHNIQUE: Real-time scanning was performed of the abdominal and retroperitoneal organs, with image documentatio n. COMPARISON: [facility], CT, CT ABD PELVIS W CON, 03/13/2017, 19:37. FINDINGS: Liver length: Greater than 20 cm Gallbladder Wall Thickness: 2.50 mm CHD: Not seen. CBD: Not seen. Spleen length: 13.53 cm Right kidney length: 11.59 cm Left kidney length: 13.54 cm Aorta(Proximal): Not seen. Aorta(Mid): 2.30 cm Aorta(Distal): 1.59 cm RCIA: 1.21 cm LCIA: 9.70 mm Liver: The liver demonstrates prominent size. The liver demonstrates generalized increased echogenic ity. This decreases ultrasound sensitivity for detection of hepatic masses. Gallbladder: No findings of gallstones or sludge are seen. The gallbladder wall is not thickened, m easuring 3 mm or less. No specific pericholecystic fluid is seen. The sonographic Contreras sign is ne gative. Biliary ducts: The biliary ducts are not seen. Pancreas: Not seen. Spleen: The spleen is mildly enlarged at 13.5 cm. No focal splenic lesions are seen. Kidneys: Kidneys are normal in size and echotexture. No hydronephrosis or nephrolithiasis. No max d masses. Aorta: Visualized aorta is normal in caliber at less than 3 cm. Iliacs: Proximal common iliac arteries are normal in caliber at less than 2.5 cm. IVC: The IVC is not well-seen. Miscellaneous: No free abdominal fluid. IMPRESSION: No gallstones are seen. The liver demonstrates prominent size and increased echogenicity, which is attributed to fatty infilt ration. Mild splenomegaly. Dictated by: Cali Bae M.D. on 07/22/2017 at 10:08 Approved by: Cali Bae M.D. on 07/22/2017 at 10:12
--- NOTE | 2017-07-22 12:15 | NUR ---
Methadone Pt very sleepy. Per MD wait to give methadone until pt is more awake and other medications have began to wear off. Care continues
[2017-07-22] MEDS: Methadone 10 mg/mL 30 mL Oral Concentration PO SCH (13:12)
--- NOTE | 2017-07-22 16:56 | PCM.PNMED ---
Subjective Date of Service Jul 22, 2017 Subjective Pt reports still having epigastric pain but improved. Pt sleepy this AM Exam Vital Signs Vital Sign - Last Date Time Temp Pulse Resp B/P Pulse Ox O2 Delivery O2 Flow Rate FiO2 07/22/17 12:49 36.4 85 18 119/80 93 Room Air 07/22/17 07:54 4.00 Intake and Output 07/21/17 07/21/17 07/22/17 Cumulative From/Thru 15:00 23:00 07:00 07/21/17 17:49 - 07/22/17 06:04 Intake Total 1875 ml 1875 ml Output Total 1400 ml 1400 ml Balance 475 ml 475 ml Intake Oral 0 ml 0 ml IV Total 1875 ml 1875 ml Output Urine Total 1400 ml 1400 ml # Bowel Movements 0 0 Exam General: Alert, Oriented X3, Cooperative, No acute Distress, Eyes: PERRLA, Scleral Anicteric Mouth: Mouth Normal, Mucous Membranes Moist/[place] Neck: Supple, no Thyromegaly, trachea central. Chest & Lungs: Clear to auscultation & percussion, No adventitious breath sounds, no crackles, no wheeze Cardiovascular: Normal S1, Normal S2, No Murmurs/Rubs/Gallops, Regular Rate/ Rhythm, (No JVD, no peripheral edema) Pulses: Radial (present and equal), Dorsalis Pedi (present and equal) Abdomen: Soft, mild epigastric tenderness, Non-distended, Normoactive bowel tones. Musculoskeletal: Unremarkable. Normal range of motion, no swollen or erythematous joints Extremities: No edema, no cyanosis, no clubbing. Skin: No rashes. Warm and dry, no erythematous areas. Neurological: Grossly neurologically intact, Normal Speech, Sensation Intact Lymphatic: Lymph nodes Cervical and Axillary not palpable. IVs and Medications Medications Reviewed: Medications were reviewed in detail Lab and Diagnostics Result Diagram: 07/22/[id number]/22/[id number] X-Rays, CTs and MRIs 07/22/17-US ABDOMEN No gallstones are seen. The liver demonstrates prominent size and increased echogenicity, which is attributed to fatty infiltration. Mild splenomegaly. 12-lead ECG Sinus, LAE. Assessment & Plan Valerio Hernandez is a 37 year old male with Hypertension, depression, and polysubstance abuse including active alcohol abuse and report of prior IV heroin (on Methadone previously) presents to [facility] emergency department complaining of severe abdominal pain 1. Acute abdominal pain secondary to Alcohol induced pancreatitis. present on admission, active. Previous episodes of alcohol induced pancreatitis. Meeting diagnosis with [place] criteria with 3X Lipase elevation and classic epigastric pain. - Abd US- No gallstones are seen, likely fatty infiltration. - Supportive care including IV fluid, antiemetics and IV Dilaudid as needed for pain - Lipase- [id number] 2 Alcohol withdrawal present on admissio, active. - Pt says does have hx of DT's. - continue CIWA protocol (Ativan protocol as Valium still not available) - Banana bag then daily Thiamine supplementation - Social work consult 3 Transaminitis, unclear chronicity. Present on admission Etiology likely secondary to Alcoholic Hepatitis. Other etiology includes Gallstone disease - Abd US- No gallstones are seen, likely fatty infiltration. - trending levels 4 Hypertension, Chronic, stable. - continue Metoprolol 50 mg bid 5 History of opioid (heroin) abuse, currently reportedly on Methadone, chronic, active. - Confirmed hm dose of Methadone, resumed. - Cut down IV Dialudid to 0.5mg IV for breakthrough pain control, will transition to PO in AM. 6 Depression, presumed stable. - continuing Duloxetine 60 mg daily 7 Nicotine Dependence. Cessation discussed and encouraged - Nicotine patch upon request DVT PPX- held heparin due to low plts of 72. - Acetaminophen as needed for mild pain/fever/headache - Bowel regimen as needed - Antiemetic as needed Patient admitted under inpatient status with expected length of stay > 2 midnights for severity of present symptoms, complexities of treatment plan and risk for adverse event . Pain Evaluation: Adequate Pain Control VTE Mechanical Devices: Intermittant Pneumatic CD Resuscitation Status: CPR: Attempt Resuscitation Levi Shipley MD Jul 22, 2017 16:56
--- NOTE | 2017-07-22 17:35 | NUR ---
CIWA Pt has been sleeping most of shift. awakens to touch. CIWA this morning ranges around 8-11. Lorazepam given. Later in the afternoon after his methadone was given his CIWA scores ranges 4-8. No lorazepam or Dilaudid has been given since Methadone was given. Care continues
[2017-07-23 00:38] VITALS: BP 155/81; PULSE 88; RESP 18; O2SAT 97
[2017-07-23] MEDS: Lactated Ringer's 1,000 ML IV SCH ×2 (02:33→07:13)
[2017-07-23] MEDS: HYDROmorphone 1 mg/mL Inj IVPUSH PRN (02:38)
--- NOTE | 2017-07-23 03:25 | NUR ---
CIWA/Pain CIWA score at beginning of shift= 13. Lorazepam given per protocol with effective results. CIWA scores the rest of the shift, so far, have been 3. Patient resting with eyes closed most of shift so far. Awakens easily to verbal and tactile stimuli. Remains pleasant and cooperative with care. Complaints of 7/10 abdominal pain. Dilaudid 0.5mg IVP given with effective results. Resting with eyes closed upon reassessment. 4L Oxymask in place while sleeping, CPOx- mid 90's.
[2017-07-23 05:00] VITALS: BP 149/101; PULSE 91; RESP 18; O2SAT 95
[2017-07-23 05:55] LABS: BASOPHILS % (AUTO) 0.1 % (0-3); EOSINOPHILS % (AUTO) 2.8 % (0-5); MONOCYTES % (AUTO) 9.1 % (4-12); Mean Corpuscular Volume 105.1 fL (81-100); NEUTROPHILS % (AUTO) 71.1 % (40-74); Platelet Count 127 bil/L (150-400)
[2017-07-23 06:07] VITALS: PULSE 96
[2017-07-23] MEDS: Methadone 10 mg/mL 30 mL Oral Concentration PO SCH (08:30)
[2017-07-23] MEDS: Multivit-Miner-Folic Acid-Iron Tablet PO SCH (08:30)
[2017-07-23 08:38] VITALS: BP 151/88; PULSE 109; RESP 18; O2SAT 93
--- NOTE | 2017-07-23 08:38 | PCM.DIMED ---
Discharge Instructions Date of Service Jul 23, 2017 Dates of Hospitalization Jul 21, 2017 at 23:16 Discharge Diagnosis Discharge Diagnosis 1. Acute abdominal pain secondary to Alcohol induced pancreatitis. present on admission, resolved 2 Alcohol withdrawal present on admission, improving. 3 Transaminitis, unclear chronicity. stable. 4 Hypertension, Chronic, stable. 5 History of opioid (heroin) abuse, currently reportedly on Methadone, chronic, active. . 6 Depression, presumed stable. 7 Nicotine Dependence. Levi Shipley MD Jul 23, 2017 08:38
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
--- NOTE | 2017-07-23 08:50 | PCM.DIMED ---
Discharge Instructions Date of Service Jul 23, 2017 Dates of Hospitalization Jul 21, 2017 at 23:16 Discharge Diagnosis Discharge Diagnosis 1. Acute abdominal pain secondary to Alcohol induced pancreatitis. present on admission, resolved. 2 Alcohol withdrawal present on admission, improving. 3 Transaminitis, unclear chronicity. Present on admission, improving. 4 Hypertension, Chronic, stable. 5 History of opioid (heroin) abuse, currently reportedly on Methadone, chronic, active. 6 Depression, chronic, presumed stable. 7 Nicotine Dependence, chronic. Medication Instructions Additional med instructions Continue Methadone starting this morning. Avoid other narcotics. . . Diet Discharge Diet: Heart Healthy Activity Discharge Activity: No restrictions Patient Instructions Patient Instructions Alcohol cessation encouraged. Follow-up plan Follow up with your primary doctor, Dr. Davis, in 1 week to get labs rechecks including liver enzymes and lipase. . Levi Shipley MD Jul 23, 2017 08:50
--- NOTE | 2017-07-23 08:54 | NUR ---
DC Pt requesting to DC this morning as he is medically stable per MD. Pt refuses morning medications as he states he will take his own at home and the Methadone he will receive at the Methadone clinic this morning after he leaves here. All discharge instructions reviewed and understood per pt. Telemetry removed, IV rt upper arm removed. Ambulates with steady agit independently in room. CIWA score 4-8. 4 this morning. Care discontinues as soon as ride gets here.
--- NOTE | 2017-07-23 10:02 | NUR ---
Social Work: Attempted Assessment/Chemical Dependency Assessment DAP: SW received CD order from . SW attempted to meet with pt but pt discharged at 0850 (per data processor) in order to make it to Methadone clinic today before it closed for the holiday weekend. Pt told RN that clinic closes at 1200. Pt requested to discharge this morning prior to SW getting to the floor to see pt for CD assessment and initial assessment. TENNILLE James
== END 2017-07-23 09:11 | disposition home or self-care (01) | DRG 439 ==
LOC: SED 17:35 → OSC 23:16
PROVIDERS: ADMIT Hospitalist; ATTEND Internal Medicine
DX: K85.20 Alcohol induced acute pancreatitis without necrosis or infection (principal); F10.239 Alcohol dependence with withdrawal, unspecified; I10 Essential (primary) hypertension; R74.0 Nonspecific elevation of levels of transaminase and lactic acid dehydrogenase [LDH]; K21.9 Gastro-esophageal reflux disease without esophagitis; J45.909 Unspecified asthma, uncomplicated; F17.200 Nicotine dependence, unspecified, uncomplicated; F11.99 Opioid use, unspecified with unspecified opioid-induced disorder; F32.9 Major depressive disorder, single episode, unspecified; Z79.51 Long term (current) use of inhaled steroids

== ENCOUNTER → 2017-08-20 | Emergency (ER) | payer OTHER ==
[~2017-08-20] VITALS: Ht 180.3 cm; Wt 104.0 kg
[~2017-08-20] MED LIST changes: +0.9% Sodium Chloride 1,000 ML IV ONE; -CHLO25CA10 PO; +FUR20 PO; +IBUP200C PO; -IBUP800T28 PO; +MULT-528 PO; +PRAV10TA2 PO; +TRIA1TAB3 PO; -ZLP5T PO; +ZOLP10TA5 PO
[2017-08-20 20:05] VITALS: BP 143/89; PULSE 88; RESP 14; O2SAT 93
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
[2017-08-20 20:50] VITALS: BP 124/76; PULSE 85; RESP 16; O2SAT 98
[2017-08-20 21:09] LABS: BASOPHILS % (AUTO) 0.2 % (0-3); Mean Corpuscular Hemoglobin 34.4 pg (27.0-35.0)
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
[2017-08-20 22:31] LABS: INR 1.06 ratio
[2017-08-20 22:58] LABS: EOSINOPHILS % (AUTO) 2.5 % (0-5); MONOCYTES % (AUTO) 8.4 % (4-12); Mean Corpuscular Volume 99.3 fL (81-100); NEUTROPHILS % (AUTO) 71.9 % (40-74); Platelet Count 103 bil/L (150-400)
[2017-08-20 23:31] LABS: APPEARANCE,URINE CLEAR (CLEAR,HAZY); COLOR,URINE YELLOW (YELLOW)
[2017-08-20 23:32] LABS: OCCULT BLOOD,URINE NEGATIVE (NEGATIVE); UROBILINOGEN,URINE NORMAL (NORMAL)
[2017-08-20 23:33] LABS: Lipase 32 U/L (13-60); Magnesium 1.6 mg/dL (1.6-2.6)
== END ==
LOC: EDUNIT# 19:56 → EDBD 19:57 → SED 20:05
DX: M54.2 Cervicalgia (principal); M54.5 Low back pain; M54.6 Pain in thoracic spine; F10.10 Alcohol abuse, uncomplicated; V47.5XXA Car driver injured in collision with fixed or stationary object in traffic accident, initial encounter; Y93.89 Activity, other specified; Y99.8 Other external cause status; Y92.410 Unspecified street and highway as the place of occurrence of the external cause; I10 Essential (primary) hypertension; F17.200 Nicotine dependence, unspecified, uncomplicated; K21.9 Gastro-esophageal reflux disease without esophagitis; F11.21 Opioid dependence, in remission; Z87.19 Personal history of other diseases of the digestive system; Z88.6 Allergy status to analgesic agent; Z88.8 Allergy status to other drugs, medicaments and biological substances; Z88.2 Allergy status to sulfonamides